=== PATIENT | female | born 1980 | race Two or more races ===

== ENCOUNTER 2022-03-11 06:39 | Inpatient (IN) ==
[2022-03-11] MEDS ORDERED: NS 100 ML IV 100 ML ONE (06:52)
[2022-03-11] MEDS ORDERED: ANCEF VIAL 1 GRAM ONE (06:52)
[2022-03-11] MEDS ORDERED: ZOFRAN INJ 4 MG VIAL ONE (06:52)
[2022-03-11] MEDS ORDERED: LR 1,000 ML IV 1,000 ML IV ONE (06:52)
[2022-03-11] MEDS ORDERED: PEPCID 20 MG VIAL ONE (06:53)
[2022-03-11] MEDS ORDERED: D5 1/2 NS 1,000 mL + PITOCIN 20 UNITS/L IV 20 UNITS/1,000 ML BAG IV ONE (06:53)
[2022-03-11] MEDS ORDERED: XYLOCAINE 2 % (PLAIN) ONE (07:03)
[2022-03-11] MEDS ORDERED: MARCAINE SPINAL ONE (07:03)
[2022-03-11] MEDS ORDERED: DILAUDID INJ ONE (07:04)
[2022-03-11] MEDS ORDERED: D5 1/2 NS 1,000 ML 1,000 ML IV SCH (07:09)
[2022-03-11] MEDS ORDERED: ANCEF VIAL 1 GRAM IVP ONE (07:09)
[2022-03-11] MEDS ORDERED: PITOCIN ONE (07:19)
[2022-03-11] MEDS ORDERED: ProvayBLUE 0.5% ONE (08:34)
[2022-03-11] MEDS ORDERED: PHENERGAN INJ 25 MG IM PRN (09:28)
[2022-03-11] MEDS ORDERED: ZOFRAN INJ 4 MG VIAL IVP PRN ×2 (09:28→09:56)
[2022-03-11] MEDS ORDERED: BARHEMSYS INJ IVP PRN (09:28)
[2022-03-11] MEDS ORDERED: BENADRYL INJ 50 MG VIAL IVP PRN ×2 (09:28→09:56)
[2022-03-11] MEDS ORDERED: REGLAN INJ 10 MG VIAL IVP PRN (09:28)
[2022-03-11] MEDS ORDERED: DILAUDID INJ IVP PRN (09:28)
[2022-03-11] MEDS ORDERED: ADACEL or BOOSTRIX TDaP VACCINE IM ONE (09:56)
[2022-03-11] MEDS ORDERED: PERCOCET TAB 5/325 MG PO PRN (09:56)
[2022-03-11] MEDS ORDERED: NARCAN INJ IVP PRN (09:56)
[2022-03-11] MEDS ORDERED: MYLICON TAB 80 MG CHEW PO PRN (09:56)
[2022-03-11] MEDS ORDERED: D5 1/2 NS 1,000 ML 1,000 ML with PITOCIN 20 UNITS IV SCH ×2 (10:00)
[2022-03-11] MEDS: TORADOL 30 MG VIAL IVP PRN (13:12)
[2022-03-12] MEDS: TORADOL 30 MG VIAL IVP PRN (00:25)
[2022-03-12 04:57] LABS: HEMATOCRIT 31.5 % (36.0-47.0); HEMOGLOBIN 11.1 g/dL (12.0-16.0)
[2022-03-12] MEDS ORDERED: MOTRIN TAB 800 MG PO PRN (06:18)
[2022-03-12] MEDS: PRENATAL PLUS PO SCH (08:56)
[2022-03-12] MEDS: MILK OF MAGNESIA PO SCH (08:56)
[2022-03-12] MEDS: COLACE CAP 100 MG PO SCH ×2 (08:56→21:44)
[2022-03-12] MEDS: PERCOCET TAB 5/325 MG PO PRN (11:35)
[2022-03-12] MEDS: BACTROBAN TOPICAL OINT TOP SCH ×2 (13:50→22:05)
[2022-03-13] MEDS: BACTROBAN TOPICAL OINT TOP SCH (05:30)
[2022-03-13] MEDS: PRENATAL PLUS PO SCH (10:00)
[2022-03-13] MEDS: MILK OF MAGNESIA PO SCH (10:00)
[2022-03-13] MEDS: COLACE CAP 100 MG PO SCH (10:00)
[2022-03-13] MEDS: PERCOCET TAB 5/325 MG PO PRN (10:02)
[2022-03-13 11:47] VITALS: BP 110/63
== END 2022-03-13 11:25 | disposition home or self-care (01) | DRG 785 ==
LOC: LD 06:39 → MED/SURG 09:56
PROVIDERS: ADMIT Specialist; ATTEND Specialist
DX: Z01.812 Encounter for preprocedural laboratory examination; Z37.0 Single live birth; Z01.818 Encounter for other preprocedural examination; Z30.2 Encounter for sterilization; Z20.822 Contact with and (suspected) exposure to COVID-19; N85.8 Other specified noninflammatory disorders of uterus; O34.211 Maternal care for low transverse scar from previous cesarean delivery

== ENCOUNTER 2023-06-17 01:29 | Inpatient (IN) ==
--- NOTE | 2023-06-17 01:50 | ED.ABDFE ---
HPI Time Seen Time Seen by Provider: 06/17/23 01:48 Complaint Doctors Chief Complaint Comments: Patient presents with abdll pain that is constant.Patient went to a primary care doctor on 06/15/23 for evaluation and was given medications that she states are not working. Patient first presented to [facility] with abdl pain on 05/21/2023. She had an abdl/pelvis CT that revealed descending colon pericolic stranding the differntial included colitis and colonic neoplasm.Two weeks ago patient went to [facility] in [place] with abdominal pain and was informed that she has colon cancer with "spots on her liver". Patient has not been able to get an appointment with an oncologist. She presents today because of te persistent pain.Patient denies:fever,nausea,vomiting,hematemesis,hematochezia,weakness. PMH PMH Past Surgical History: Yes Surgical History: Family History Family Medical History: Diabetes Mellitus, Heart Failure and Hypertension Social History Do you use any recreational Drugs:: No ROS Review of Systems Constitutional: No Symptoms Reported Eyes: No Symptoms Reported ENTM: No Symptoms Reported Respiratoy: No Symptoms Reported Cardiovascular: No Symptoms Reported Gastrointestinal/Abdominal: Abdominal Pain (generalized,intractable.) Genitourinary: No Symptoms Reported Neurological: No Symptoms Reported Musculoskeletal: No Symptoms Reported Integumentary: No Symptoms Reported Hematologic/Lymphatic: No Symptoms Reported Endocrine: No Symptoms Reported Psychiatric: No Symptoms Reported All Other Systems: Reviewed and Negative PE Vital Signs Vitals: Vital Signs Temperature 98.3 F Pulse Rate [Left Brachial] 80 Pulse Rate [Left Brachial] 86 Pulse Rate [Left Brachial] 92 Pulse Rate [Left Brachial] 85 Pulse Rate [Left Brachial] 80 Pulse Rate [Left Brachial] 91 Pulse Rate [Left Brachial] 91 Pulse Rate [Left Brachial] 94 Pulse Rate [Left Brachial] 97 Pulse Rate 100 Respiratory Rate 20 Respiratory Rate 20 Respiratory Rate 20 Respiratory Rate 20 Respiratory Rate 20 Respiratory Rate 20 Respiratory Rate 20 Respiratory Rate 20 Respiratory Rate 20 Respiratory Rate 20 Blood Pressure [Right Arm] 125/62 Blood Pressure [Right Arm] 102/58 Blood Pressure [Right Arm] 100/49 Blood Pressure [Right Arm] 106/55 Blood Pressure [Left Arm] 112/64 Blood Pressure [Left Arm] 106/56 Blood Pressure [Left Arm] 104/70 Blood Pressure [Left Arm] 106/55 Blood Pressure [Left Arm] 109/58 Blood Pressure 109/59 O2 Sat by Pulse Oximetry 97 O2 Sat by Pulse Oximetry 100 O2 Sat by Pulse Oximetry 98 O2 Sat by Pulse Oximetry 97 O2 Sat by Pulse Oximetry 96 O2 Sat by Pulse Oximetry 97 O2 Sat by Pulse Oximetry 98 O2 Sat by Pulse Oximetry 98 O2 Sat by Pulse Oximetry 97 General Limitations: No Limitations and Language Barrier General Appearance: Alert and In No Apparent Distress Head Head Exam: Normal Inspection Eyes Eye exam: Normal Appearance ENT ENT Exam: Normal Exam Neck Neck Exam: Normal Inspection Chest Chest Inspection: Normal Inspection Respiratory Respiratory Exam: Normal Lung Sounds Bilat Respiratory Exam: Bilateral: Clear to Auscultation Cardiovascular Cardiovascular Exam: Regular Rate and Normal Rhythm Abdominal Exam Abdominal Exam: Tenderness (RUQ/RLQ and LUQ) and Hypoactive Bowel Sounds Abdominal Tenderness: RUQ, RLQ and LUQ Rectal Rectal Exam: Deferred Back Back Exam: Normal Inspection Extremeties Extremities Exam: Normal Inspection Neurologic Neurological Exam: Alert and Oriented X3 Psychiatric Psychiatric Exam: Normal Affect and Normal Mood Skin Skin Exam: Warm, Dry and Intact MDM Differential Diagnosis Differential Diagnosis- Considerations may include:: Bowel Obstruction, Inflammatory BD, Ischemic Bowel and Other (comments) (Bowel perforation,malignancy) COURSE Treatment Treatment: Patient has a BP 109/59.IV access was initiated and patient patient recieved toradol 30mg iv/pepcid 20mg iv/dicyclomine 10mg IM/ NS 2L iv bolus. Patient's BP did mimprove. The abd/pelvis CT with iv contrast revealed probabale colonic adenocarcinoma pd descending colon with metastatic lesions (3) in the liver. Patient's family member states that her pain began iin her LUq and LLQ and has chnaged to her RUQ and RLQ. Patient's labs were reviewed and her wbc is wnl,h/h is 8,lactic acid is 0.6,crp 100. Discussed case with Dr Pepe and he has accepted patient to his service.Patient has been stable in the ED. [facility]OR Labs Reviewed Laboratory Results Reviewed?: Yes 06/17/23 02:08 06/17/23 02:08 Laboratory: WBC 10.0 X10^3/uL (3.6-10.0) 06/17/23 02:08 RBC 3.24 X10^6/uL (3.5-5.4) L 06/17/23 02:08 Hgb 8.0 g/dL (12.0-16.0) L 06/17/23 02:08 Hct 24.4 % (36.0-47.0) L 06/17/23 02:08 MCV 75.4 fL (80.0-100.0) L 06/17/23 02:08 MCH 24.6 pg (27.0-34.0) L 06/17/23 02:08 MCHC 32.7 g/dL (33.0-35.0) L 06/17/23 02:08 RDW 17.2 % (11.6-16.5) H 06/17/23 02:08 Plt Count 511 X10^3/uL (150.0-450.0) H 06/17/23 02:08 MPV 7.1 fL (7.4-11.0) L 06/17/23 02:08 Neut % (Auto) 74.4 % (42.0-75.0) 06/17/23 02:08 Lymph % (Auto) 15.1 % (21.0-51.0) L 06/17/23 02:08 [place] % (Auto) 9.4 % (0.0-13.0) 06/17/23 02:08 Eos % (Auto) 0.7 % (0.9-2.9) L 06/17/23 02:08 Baso % (Auto) 0.4 % (0.2-1.0) 06/17/23 02:08 Neut # (Auto) 7.5 x10^3/uL (2.2-4.8) H 06/17/23 02:08 Lymph # (Auto) 1.5 X10^3/uL (1.3-2.9) 06/17/23 02:08 [place] # (Auto) 0.9 x10^3/uL (0.3-0.8) H 06/17/23 02:08 Eos # (Auto) 0.1 x10^3/uL (0.0-0.2) 06/17/23 02:08 Baso # (Auto) 0.0 X10^3/uL (0.0-0.1) 06/17/23 02:08 Absolute Nucleated RBC 0.1 /100WBC 06/17/23 02:08 Sodium 126 mmol/L (136-145) L 06/17/23 02:08 Corrected Sodium TNP 06/17/23 02:08 Potassium 3.7 mmol/L (3.5-5.1) 06/17/23 02:08 Chloride 95 mmol/L (98-107) L 06/17/23 02:08 Carbon Dioxide 25.3 mmol/L (21-32) 06/17/23 02:08 BUN 9 mg/dL (7-18) 06/17/23 02:08 Creatinine 0.54 mg/dL (0.55-1.02) L 06/17/23 02:08 Est GFR (MDRD) Af Amer > 60 (>60) 06/17/23 02:08 Est GFR (MDRD) Non-Af > 60 (>60) 06/17/23 02:08 Glucose 83 mg/dL (65-99) 06/17/23 02:08 Lactic Acid 0.6 mmol/L (0.4-2.0) 06/17/23 02:08 Calcium 8.2 mg/dL (8.5-10.1) L 06/17/23 02:08 Corrected Calcium 9.7 mg/dL (8.5-10.1) 06/17/23 02:08 Total Bilirubin 0.50 mg/dL (0.2-1.0) 06/17/23 02:08 AST 37 Units/L (15-37) 06/17/23 02:08 ALT 21 Units/L (12-78) 06/17/23 02:08 Alkaline Phosphatase 298 Units/L (46-116) H 06/17/23 02:08 C-Reactive Protein 100.20 mg/L (0-3.0) H 06/17/23 02:08 Total Protein 7.6 g/dL (6.4-8.2) 06/17/23 02:08 Albumin 2.1 g/dL (3.4-5.0) L 06/17/23 02:08 Globulin 5.5 g/dL (2.5-4.5) H 06/17/23 02:08 Albumin/Globulin Ratio 0.4 Ratio (1.1-2.1) L 06/17/23 02:08 Amylase 43 Units/L (25-115) 06/17/23 02:08 Lipase 13 Units/L (16-77) L 06/17/23 02:08 Specimen Type Clean catch urine 06/17/23 05:05 Urine Color Yellow (YELLOW) 06/17/23 05:05 Urine Appearance Clear (CLEAR) 06/17/23 05:05 Urine pH 7.0 (5.0 - 8.0) 06/17/23 05:05 Ur Specific [place] 1.010 (1.000-1.030) 06/17/23 05:05 Urine Protein 2+ (NEGATIVE) 06/17/23 05:05 Urine Glucose (UA) Negative (NEGATIVE) 06/17/23 05:05 Urine Ketones Negative (NEGATIVE) 06/17/23 05:05 Urine Blood Negative (NEGATIVE) 06/17/23 05:05 Urine Nitrite Negative (NEGATIVE) 06/17/23 05:05 Urine Bilirubin Negative (NEGATIVE) 06/17/23 05:05 Urine Urobilinogen Normal (NORMAL) 06/17/23 05:05 Ur Leukocyte Esterase 1+ (NEGATIVE) 06/17/23 05:05 Urine RBC None seen /HPF (0-3) 06/17/23 05:05 Urine WBC 0-2 /HPF (0-5) 06/17/23 05:05 Ur Squamous Epith Cells Moderate /HPF (NEGATIVE) 06/17/23 05:05 Urine Bacteria Trace /HPF (NEGATIVE) 06/17/23 05:05 Urine Mucus Rare /HPF (NEGATIVE) 06/17/23 05:05 Ur Culture Indicated? No/not indicated 06/17/23 05:05 XRAY XRAY Interpreted by: Radiologist X-ray Results: EXAM: CT ABDOMEN AND PELVIS WITH CONTRAST HISTORY: Right-sided abdominal pain COMPARISON: May 21, 2023 TECHNIQUE: Axial images were acquired of the abdomen and pelvis with IV contrast. Sagittal and coronal reformatted images were provided. All images were reviewed in a variety of windows and levels. RADIATION REDUCTION TECHNIQUE: Automated exposure control, adjustment of the mA and/or kV according to patient size, or iterative reconstruction techniques were used. FINDINGS: The visualized lower lung zones are clear. There is a 3 mm nodule in the right lower lobe. Dependent atelectatic changes are noted. Heart size is normal. No pericardial effusion is seen. There is a large ill-defined mass located in the right hepatic lobe extending to the subcapsular surface which measures 10 x 8 cm. There are 2 additional liver lesion seen measuring 27 mm in diameter in the anterior segment of the right hepatic lobe and 28 mm in diameter located in the posterior segment of the right hepatic lobe. Multiple gallstones are identified. The spleen, pancreas, adrenal glands, and kidneys are unremarkable. Progressive fusiform enlargement is seen involving the distal portion of the descending colon which measures 9 cm in length which has a central necrotic region with an abrupt shelf cutoff between normal bowel. This has progressively worsened when compared to the prior examinations. There is no evidence of obstructive uropathy. The patient is status post hysterectomy. The remaining visualized portions of the colon and appendix is unremarkable. Urinary bladder is unremarkable. There are lymph nodes that are visualized in the peritoneum and in the retroperitoneal region but they do not meet CT criteria for lymphadenopathy. There is no evidence of an abdominal aortic aneurysm or dissection. The visualized bones demonstrate degenerative changes. There are no concerning lytic or blastic lesions identified. IMPRESSION: FINDINGS ARE HIGHLY WORRISOME FOR COLONIC ADENOCARCINOMA OF THE DESCENDING COLON WITH IMAGING FEATURES THAT ARE HIGHLY WORRISOME FOR METASTATIC DISEASE TO THE LIVER. COMMUNICATIONS: These findings were discussed with Dr. Patel of the emergency Department at 4:20 A.M. EASTERN STANDARD TIME on 06/17/2023. THIS IS AN ELECTRONICALLY VERIFIED FINAL REPORT 06/17/2023 4:33 AM - Electronically signed by Toby Landaverde MD Opioid Opioid Risk Tool Age (Donnie box if 16-45): Yes History of Preadolescent Sexual Abuse: No Total: 1 Total Score Risk Category: Low Risk Copyright: [facility] predicting aberrant behaviors Discharge Plan Diagnosis Discharge Problem: Intractable abdominal pain, Colon cancer metastasized to liver Discharge Plan Patient Disposition: 09 ADMITTED INPATIENT Condition: Stable Prescriptions: No Action [facility] Concerns: Post Hospitalization: new medications and changes needed to prevent readmission or further decline. Pt educated and given instructions on all concerns. Plan of Treatment: Continue with present treatment and follow up plan. Pt is to keep follow up appointment as instructed and take medications as ordered. Orders to Discharge Patient Discharge Orders: Transfer (Routine); Ordered 06/17/23 Ordered By: Liliana Capps Follow ups/Referrals Follow ups/Referrals: NFD,None [Primary Care Provider] - 3 days Instructions Stand Alone Forms: Post Hospital Follow Up Care
[2023-06-17] MEDS ORDERED: NS 1,000 ML IV 1,000 ML IV ONE (01:56)
[2023-06-17] MEDS ORDERED: PEPCID 20 MG VIAL IVP ONE (01:56)
[2023-06-17] MEDS ORDERED: ZOFRAN INJ 4 MG VIAL IVP ONE (01:56)
[2023-06-17] MEDS ORDERED: TORADOL 30 MG VIAL IVP ONE (01:56)
[2023-06-17] MEDS ORDERED: NS 1,000 ML IV 1,000 ML ONE ×2 (02:00→03:50)
[2023-06-17] MEDS ORDERED: TORADOL 30 MG VIAL ONE (02:14)
[2023-06-17] MEDS ORDERED: ZOFRAN INJ 4 MG VIAL ONE (02:15)
[2023-06-17] MEDS ORDERED: PEPCID 20 MG VIAL ONE (02:15)
[2023-06-17 02:34] LABS: BASOPHILS % (AUTO) 0.4 % (0.2-1.0); EOSINOPHILS # (AUTO) 0.1 x10^3/uL (0.0-0.2); EOSINOPHILS % (AUTO) 0.7 % (0.9-2.9); HEMATOCRIT 24.4 % (36.0-47.0); LYMPHOCYTES # (AUTO) 1.5 X10^3/uL (1.3-2.9); LYMPHOCYTES % (AUTO) 15.1 % (21.0-51.0); MEAN CORPUSCULAR HEMOGLOBIN 24.6 pg (27.0-34.0); MEAN CORPUSCULAR HGB CONC 32.7 g/dL (33.0-35.0); MEAN CORPUSCULAR VOLUME 75.4 fL (80.0-100.0); MEAN PLATELET VOLUME 7.1 fL (7.4-11.0); MONOCYTES # (AUTO) 0.9 x10^3/uL (0.3-0.8); MONOCYTES % (AUTO) 9.4 % (0.0-13.0); NEUTROPHILS # (AUTO) 7.5 x10^3/uL (2.2-4.8); NEUTROPHILS % (AUTO) 74.4 % (42.0-75.0); PLATELET COUNT 511 X10^3/uL (150.0-450.0); RED BLOOD COUNT 3.24 X10^6/uL (3.5-5.4); RED CELL DISTRIBUTION WIDTH 17.2 % (11.6-16.5)
[2023-06-17 02:36] LABS: ALANINE AMINOTRANSFERASE 21 Units/L (12-78); ALBUMIN 2.1 g/dL (3.4-5.0); ALKALINE PHOSPHATASE 298 Units/L (46-116); AMYLASE 43 Units/L (25-115); ASPARTATE AMINO TRANSFERASE 37 Units/L (15-37); BLOOD UREA NITROGEN 9 mg/dL (7-18); CALCIUM 8.2 mg/dL (8.5-10.1); CARBON DIOXIDE 25.3 mmol/L (21-32); CHLORIDE 95 mmol/L (98-107); COR CA(FOR HYPOALB) 9.7 mg/dL (8.5-10.1); CREATININE 0.54 mg/dL (0.55-1.02); GLUCOSE 83 mg/dL (65-99); LIPASE 13 Units/L (16-77); POTASSIUM 3.7 mmol/L (3.5-5.1); SODIUM 126 mmol/L (136-145); TOTAL PROTEIN 7.6 g/dL (6.4-8.2); eGFR NON BLACK RACES > 60 (>60)
[2023-06-17] MEDS ORDERED: NS 100 ML IV 100 ML ONE (02:44)
[2023-06-17] MEDS ORDERED: OMNIPAQUE 350 mg/mL 100 mL BTL 100 ML ONE (02:44)
[2023-06-17] MEDS: NS 1,000 ML IV 1,000 ML IV ONE (03:53)
--- NOTE | 2023-06-17 04:37 | CT ---
EXAM:CT ABDOMEN AND PELVIS WITH CONTRASTHISTORY:Right-sided abdominal painCOMPARISON:May 21, 2023TECHNIQUE:Axial images were acquired of the abdomen and pelvis with IV contrast. Sagittal and coronal reformatted images were provided. All images were reviewed in a variety of windows and levels.RADIATION REDUCTION TECHNIQUE: Automated exposure control, adjustment of the mA and/or kV according to patient size, or iterative reconstruction techniques were used.FINDINGS:The visualized lower lung zones are clear. There is a 3 mm nodule in the right lower lobe. Dependent atelectatic changes are noted. Heart size is normal. No pericardial effusion is seen.There is a large ill-defined mass located in the right hepatic lobe extending to the subcapsular surface which measures 10 x 8 cm. There are 2 additional liver lesion seen measuring 27 mm in diameter in the anterior segment of the right hepatic lobe and 28 mm in diameter located in the posterior segment of the right hepatic lobe.Multiple gallstones are identified. The spleen, pancreas, adrenal glands, and kidneys are unremarkable. Progressive fusiform enlargement is seen involving the distal portion of the descending colon which measures 9 cm in length which has a central necrotic region with an abrupt shelf cutoff between normal bowel. This has progressively worsened when compared to the prior examinations.There is no evidence of obstructive uropathy. The patient is status post hysterectomy. The remaining visualized portions of the colon and appendix is unremarkable. Urinary bladder is unremarkable. There are lymph nodes that are visualized in the peritoneum and in the retroperitoneal region but they do not meet CT criteria for lymphadenopathy.There is no evidence of an abdominal aortic aneurysm or dissection. The visualized bones demonstrate degenerative changes. There are no concerning lytic or blastic lesions identified.IMPRESSION:FINDINGS ARE HIGHLY WORRISOME FOR COLONIC ADENOCARCINOMA OF THE DESCENDING COLON WITH IMAGING FEATURES THAT ARE HIGHLY WORRISOME FOR METASTATIC DISEASE TO THE LIVER.COMMUNICATIONS: These findings were discussed with Dr. Patel of the emergency Department at 4:20 A.M. EASTERN STANDARD TIME on 06/17/2023.THIS IS AN ELECTRONICALLY VERIFIED FINAL REPORT06/17/2023 4:33 AM - Electronically signed by Toby Landaverde MD
[2023-06-17 05:10] LABS: BILIRUBIN,URINE NEGATIVE (NEGATIVE); BLOOD/HEMOGLOBIN,URINE NEGATIVE (NEGATIVE); GLUCOSE, URINE NEGATIVE (NEGATIVE); KETONES,URINE NEGATIVE (NEGATIVE); LEUKOCYTE ESTERASE ,URINE 1+ (NEGATIVE); NITRITES,URINE NEGATIVE (NEGATIVE); PROTEIN,URINE 2+ (NEGATIVE); UROBILINOGEN,URINE NORMAL (NORMAL)
[2023-06-17 05:20] LABS: APPEARANCE,URINE CLEAR (CLEAR); COLOR,URINE YELLOW (YELLOW)
[2023-06-17 05:29] LABS: BACTERIA,URINE TRACE /HPF (NEGATIVE); RBC,URINE NONE SEEN /HPF (0-3); SQUAMOUS EPITHELIAL CELL,UR MODERATE /HPF (NEGATIVE)
[2023-06-17] MEDS ORDERED: BENTYL I.M. INJ 10 MG IM ONE ×2 (05:41→05:42)
[2023-06-17] MEDS ORDERED: LR 1,000 ML IV 1,000 ML IV ONE (06:48)
[2023-06-17] MEDS: LR 1,000 ML IV 1,000 ML IV SCH ×3 (06:50→19:04)
[2023-06-17] MEDS: ZOFRAN INJ 4 MG VIAL IVP PRN ×3 (08:20→20:37)
[2023-06-17] MEDS ORDERED: GOLYTELY or GAVILYTE or Equivalent PO SCH (09:00)
[2023-06-17 09:27] VITALS: BMI 37.8
[2023-06-17] MEDS: DILAUDID INJ IVP PRN ×4 (09:39→20:36)
[2023-06-17] MEDS ORDERED: COMPAZINE INJ IVP SCH (16:45)
[2023-06-17] MEDS: COMPAZINE INJ IVP PRN (17:02)
[2023-06-18] MEDS: DILAUDID INJ IVP PRN ×7 (00:18→23:26)
[2023-06-18] MEDS: COMPAZINE INJ IVP PRN ×4 (03:14→23:17)
[2023-06-18] MEDS: LR 1,000 ML IV 1,000 ML IV SCH ×2 (04:00→09:44)
[2023-06-18 05:40] LABS: BASOPHILS # (AUTO) 0.1 X10^3/uL (0.0-0.1); EOSINOPHILS # (AUTO) 0.1 x10^3/uL (0.0-0.2); EOSINOPHILS % (AUTO) 0.7 % (0.9-2.9); LYMPHOCYTES # (AUTO) 1.1 X10^3/uL (1.3-2.9); MEAN CORPUSCULAR HEMOGLOBIN 24.6 pg (27.0-34.0); MEAN CORPUSCULAR HGB CONC 32.7 g/dL (33.0-35.0); MEAN PLATELET VOLUME 7.1 fL (7.4-11.0)
[2023-06-18 05:46] LABS: BASOPHILS % (AUTO) 1.1 % (0.2-1.0); LYMPHOCYTES % (AUTO) 12.3 % (21.0-51.0); MEAN CORPUSCULAR VOLUME 75.1 fL (80.0-100.0); MONOCYTES # (AUTO) 1.1 x10^3/uL (0.3-0.8); MONOCYTES % (AUTO) 11.5 % (0.0-13.0); NEUTROPHILS # (AUTO) 6.9 x10^3/uL (2.2-4.8); NEUTROPHILS % (AUTO) 74.4 % (42.0-75.0); PLATELET COUNT 469 X10^3/uL (150.0-450.0); RED BLOOD COUNT 2.79 X10^6/uL (3.5-5.4); RED CELL DISTRIBUTION WIDTH 17.3 % (11.6-16.5); WHITE BLOOD COUNT 9.3 X10^3/uL (3.6-10.0)
[2023-06-18 05:58] LABS: ALANINE AMINOTRANSFERASE 16 Units/L (12-78); ALBUMIN 1.8 g/dL (3.4-5.0); ALKALINE PHOSPHATASE 221 Units/L (46-116); ASPARTATE AMINO TRANSFERASE 35 Units/L (15-37); BLOOD UREA NITROGEN 5 mg/dL (7-18); CHLORIDE 98 mmol/L (98-107); COR CA(FOR HYPOALB) 9.8 mg/dL (8.5-10.1); CREATININE 0.44 mg/dL (0.55-1.02); GLUCOSE 75 mg/dL (65-99); POTASSIUM 3.4 mmol/L (3.5-5.1); SODIUM 130 mmol/L (136-145); TOTAL PROTEIN 6.8 g/dL (6.4-8.2); eGFR NON BLACK RACES > 60 (>60)
[2023-06-18 06:08] LABS: HEMOGLOBIN 6.9 g/dL (12.0-16.0)
[2023-06-18] MEDS: ZOFRAN INJ 4 MG VIAL IVP PRN ×3 (07:40→19:43)
[2023-06-18] MEDS ORDERED: NS 1,000 ML IV 1,000 ML ONE (08:26)
[2023-06-18] MEDS ORDERED: DIPRIVAN VIAL 20 ML ONE ×2 (08:32→08:53)
[2023-06-18] MEDS ORDERED: NS 500 ML IV 500 ML IV ONE (10:39)
[2023-06-18] MEDS: LEVAQUIN PREMIX IV 500 MG 500 MG/100 ML BAG IV SCH (10:45)
[2023-06-18] MEDS: NS 500 ML IV 500 ML IV ONE (10:45)
[2023-06-18] MEDS: D5 1/2 NS 1,000 ML 1,000 ML IV SCH ×2 (10:45→21:41)
[2023-06-18] MEDS: TORADOL TAB PO PRN ×2 (11:00→18:56)
[2023-06-18 19:13] LABS: HEMATOCRIT 25.9 % (36.0-47.0); HEMOGLOBIN 8.3 g/dL (12.0-16.0)
[2023-06-19] MEDS: D5 1/2 NS 1,000 ML 1,000 ML IV SCH (02:18)
[2023-06-19] MEDS: ZOFRAN INJ 4 MG VIAL IVP PRN ×3 (03:30→20:30)
[2023-06-19] MEDS: DILAUDID INJ IVP PRN ×5 (03:31→20:30)
[2023-06-19 05:31] LABS: BASOPHILS # (AUTO) 0.1 X10^3/uL (0.0-0.1); BASOPHILS % (AUTO) 0.9 % (0.2-1.0); EOSINOPHILS % (AUTO) 0.2 % (0.9-2.9); HEMATOCRIT 23.8 % (36.0-47.0); HEMOGLOBIN 7.9 g/dL (12.0-16.0); LYMPHOCYTES # (AUTO) 0.6 X10^3/uL (1.3-2.9); LYMPHOCYTES % (AUTO) 6.4 % (21.0-51.0); MEAN CORPUSCULAR HEMOGLOBIN 25.2 pg (27.0-34.0); MEAN CORPUSCULAR VOLUME 76.4 fL (80.0-100.0); MEAN PLATELET VOLUME 7.3 fL (7.4-11.0); MONOCYTES # (AUTO) 1.1 x10^3/uL (0.3-0.8); MONOCYTES % (AUTO) 11.1 % (0.0-13.0); NEUTROPHILS # (AUTO) 8.2 x10^3/uL (2.2-4.8); NEUTROPHILS % (AUTO) 81.4 % (42.0-75.0); PLATELET COUNT 420 X10^3/uL (150.0-450.0); RED BLOOD COUNT 3.12 X10^6/uL (3.5-5.4); RED CELL DISTRIBUTION WIDTH 17.8 % (11.6-16.5); WHITE BLOOD COUNT 10.1 X10^3/uL (3.6-10.0)
[2023-06-19 05:52] LABS: ALANINE AMINOTRANSFERASE 15 Units/L (12-78); ALBUMIN 1.7 g/dL (3.4-5.0); ALKALINE PHOSPHATASE 191 Units/L (46-116); ASPARTATE AMINO TRANSFERASE 41 Units/L (15-37); BLOOD UREA NITROGEN 5 mg/dL (7-18); CALCIUM 7.8 mg/dL (8.5-10.1); CHLORIDE 96 mmol/L (98-107); COR CA(FOR HYPOALB) 9.6 mg/dL (8.5-10.1); CREATININE 0.46 mg/dL (0.55-1.02); GLUCOSE 97 mg/dL (65-99); MAGNESIUM 1.6 mg/dL (2.0-2.9); POTASSIUM 3.1 mmol/L (3.5-5.1); SODIUM 128 mmol/L (136-145); TOTAL PROTEIN 6.6 g/dL (6.4-8.2); eGFR NON BLACK RACES > 60 (>60)
[2023-06-19] MEDS ORDERED: CONSULT PHARMACY - POTASSIUM & MAGNESIUM XX SCH (07:00)
[2023-06-19] MEDS ORDERED: MAGNESIUM SULFATE 1 GRAM/100 mL PREMIX 1 G/100 ML BAG IV SCH (09:00)
[2023-06-19] MEDS ORDERED: K-RIDER 10 MEQ/100 ML WATER 10 MEQ/100 ML BAG IV SCH (09:00)
[2023-06-19] MEDS: COMPAZINE INJ IVP PRN ×3 (09:00→23:01)
--- NOTE | 2023-06-19 09:09 | DR.PROGNOT ---
HOSPITAL PROGRESS NOTE Progress Note for Day of: Progress Note Date: 06/19/23 Chief Complaint Chief Complaint: c/o RT side abdominal pain . passing flatus and small BM . Hgb 7.9... biliru2.2 .. K 3.1 .Album1.7 Past Medical Family Social History Allergies: Allergies No Known Drug Allergies Allergy (Verified 06/17/23 08:57) Vital Signs Vital Signs: Vital Signs Temperature 99.4 F Pulse Rate 103 Pulse Rate 86 Pulse Rate 101 Pulse Rate 108 Pulse Rate 103 Respiratory Rate 20 Respiratory Rate 19 Respiratory Rate 21 Respiratory Rate 22 Respiratory Rate 19 Respiratory Rate 22 Respiratory Rate 23 Blood Pressure 129/78 Blood Pressure 119/63 Blood Pressure 126/76 Blood Pressure 136/86 Blood Pressure 131/69 O2 Sat by Pulse Oximetry 96 O2 Sat by Pulse Oximetry 94 O2 Sat by Pulse Oximetry 95 O2 Sat by Pulse Oximetry 96 O2 Sat by Pulse Oximetry 95 Physical Exam Oriented: Normal Eyes: Normal Nose: Normal Respiratory: Normal Cardiovascular: Normal GI:Auscultation: Normal GI: Tenderness: Other (Rt side and Lt side tenderness , soft abdomen ..) Speech Pattern: Clear and Appropriate Laboratory and Diagnostics 06/19/23 04:03 06/19/23 04:03 Labs: Laboratory WBC 10.1 X10^3/uL (3.6-10.0) H 06/19/23 04:03 RBC 3.12 X10^6/uL (3.5-5.4) L 06/19/23 04:03 Hgb 7.9 g/dL (12.0-16.0) L 06/19/23 04:03 Hct 23.8 % (36.0-47.0) L 06/19/23 04:03 MCV 76.4 fL (80.0-100.0) L 06/19/23 04:03 MCH 25.2 pg (27.0-34.0) L 06/19/23 04:03 MCHC 33.0 g/dL (33.0-35.0) 06/19/23 04:03 RDW 17.8 % (11.6-16.5) H 06/19/23 04:03 Plt Count 420 X10^3/uL (150.0-450.0) 06/19/23 04:03 MPV 7.3 fL (7.4-11.0) L 06/19/23 04:03 Neut % (Auto) 81.4 % (42.0-75.0) H 06/19/23 04:03 Lymph % (Auto) 6.4 % (21.0-51.0) L 06/19/23 04:03 [place] % (Auto) 11.1 % (0.0-13.0) 06/19/23 04:03 Eos % (Auto) 0.2 % (0.9-2.9) L 06/19/23 04:03 Baso % (Auto) 0.9 % (0.2-1.0) 06/19/23 04:03 Neut # (Auto) 8.2 x10^3/uL (2.2-4.8) H 06/19/23 04:03 Lymph # (Auto) 0.6 X10^3/uL (1.3-2.9) L 06/19/23 04:03 [place] # (Auto) 1.1 x10^3/uL (0.3-0.8) H 06/19/23 04:03 Eos # (Auto) 0.0 x10^3/uL (0.0-0.2) 06/19/23 04:03 Baso # (Auto) 0.1 X10^3/uL (0.0-0.1) 06/19/23 04:03 Absolute Nucleated RBC 0.0 /100WBC 06/19/23 04:03 Sodium 128 mmol/L (136-145) L 06/19/23 04:03 Corrected Sodium TNP 06/19/23 04:03 Potassium 3.1 mmol/L (3.5-5.1) L 06/19/23 04:03 Chloride 96 mmol/L (98-107) L 06/19/23 04:03 Carbon Dioxide 25.0 mmol/L (21-32) 06/19/23 04:03 BUN 5 mg/dL (7-18) L 06/19/23 04:03 Creatinine 0.46 mg/dL (0.55-1.02) L 06/19/23 04:03 Est GFR (MDRD) Af Amer > 60 (>60) 06/19/23 04:03 Est GFR (MDRD) Non-Af > 60 (>60) 06/19/23 04:03 Glucose 97 mg/dL (65-99) 06/19/23 04:03 Lactic Acid 0.6 mmol/L (0.4-2.0) 06/17/23 02:08 Calcium 7.8 mg/dL (8.5-10.1) L 06/19/23 04:03 Corrected Calcium 9.6 mg/dL (8.5-10.1) 06/19/23 04:03 Magnesium 1.6 mg/dL (2.0-2.9) L 06/19/23 04:03 Total Bilirubin 2.20 mg/dL (0.2-1.0) H 06/19/23 04:03 AST 41 Units/L (15-37) H 06/19/23 04:03 ALT 15 Units/L (12-78) 06/19/23 04:03 Alkaline Phosphatase 191 Units/L (46-116) H 06/19/23 04:03 C-Reactive Protein 100.20 mg/L (0-3.0) H 06/17/23 02:08 Total Protein 6.6 g/dL (6.4-8.2) 06/19/23 04:03 Albumin 1.7 g/dL (3.4-5.0) L 06/19/23 04:03 Globulin 4.9 g/dL (2.5-4.5) H 06/19/23 04:03 Albumin/Globulin Ratio 0.3 Ratio (1.1-2.1) L 06/19/23 04:03 Amylase 43 Units/L (25-115) 06/17/23 02:08 Lipase 13 Units/L (16-77) L 06/17/23 02:08 Specimen Type Clean catch urine 06/17/23 05:05 Urine Color Yellow (YELLOW) 06/17/23 05:05 Urine Appearance Clear (CLEAR) 06/17/23 05:05 Urine pH 7.0 (5.0 - 8.0) 06/17/23 05:05 Ur Specific [place] 1.010 (1.000-1.030) 06/17/23 05:05 Urine Protein 2+ (NEGATIVE) 06/17/23 05:05 Urine Glucose (UA) Negative (NEGATIVE) 06/17/23 05:05 Urine Ketones Negative (NEGATIVE) 06/17/23 05:05 Urine Blood Negative (NEGATIVE) 06/17/23 05:05 Urine Nitrite Negative (NEGATIVE) 06/17/23 05:05 Urine Bilirubin Negative (NEGATIVE) 06/17/23 05:05 Urine Urobilinogen Normal (NORMAL) 06/17/23 05:05 Ur Leukocyte Esterase 1+ (NEGATIVE) 06/17/23 05:05 Urine RBC None seen /HPF (0-3) 06/17/23 05:05 Urine WBC 0-2 /HPF (0-5) 06/17/23 05:05 Ur Squamous Epith Cells Moderate /HPF (NEGATIVE) 06/17/23 05:05 Urine Bacteria Trace /HPF (NEGATIVE) 06/17/23 05:05 Urine Mucus Rare /HPF (NEGATIVE) 06/17/23 05:05 Ur Culture Indicated? No/not indicated 06/17/23 05:05 Blood Type O POSITIVE 06/18/23 06:30 Antibody Screen Negative 06/18/23 06:30 Crossmatch See Detail 06/18/23 06:30 Assessment and Plan 1: Lt colon ca at 35 cm . for transfusion , surgery on wednesday .. 2: GI blood loss anemia 3: chlecystitis 4: hypokalemia Problem Patient Problems: Patient Problems Intractable abdominal pain (Acute) R10.9 Colon cancer metastasized to liver (Acute) C18.9, C78.7
[2023-06-19] MEDS: LEVAQUIN PREMIX IV 500 MG 500 MG/100 ML BAG IV SCH (09:50)
[2023-06-19] MEDS: NS + KCL 20 MEQ/L 1,000 ML with MAGNESIUM SULFATE 50% INJ VIAL 1 G IV SCH ×6 (09:50→23:03)
[2023-06-19] MEDS: VISTARIL PO PRN (09:50)
[2023-06-19] MEDS ORDERED: NS 500 ML IV 500 ML IV ONE (14:12)
[2023-06-19] MEDS: NS 500 ML IV 500 ML IV ONE (14:50)
[2023-06-19 18:15] LABS: HEMATOCRIT 28.5 % (36.0-47.0); HEMOGLOBIN 9.2 g/dL (12.0-16.0)
[2023-06-19] MEDS: TORADOL TAB PO PRN (23:08)
[2023-06-20] MEDS: NS + KCL 20 MEQ/L 1,000 ML with MAGNESIUM SULFATE 50% INJ VIAL 1 G IV SCH ×6 (00:14→21:29)
[2023-06-20] MEDS: DILAUDID INJ IVP PRN ×6 (00:14→21:45)
[2023-06-20] MEDS: ZOFRAN INJ 4 MG VIAL IVP PRN ×3 (04:12→21:44)
[2023-06-20 05:39] LABS: BASOPHILS # (AUTO) 0.1 X10^3/uL (0.0-0.1); BASOPHILS % (AUTO) 1.4 % (0.2-1.0); EOSINOPHILS # (AUTO) 0.1 x10^3/uL (0.0-0.2); EOSINOPHILS % (AUTO) 0.6 % (0.9-2.9); HEMATOCRIT 25.7 % (36.0-47.0); HEMOGLOBIN 8.6 g/dL (12.0-16.0); LYMPHOCYTES # (AUTO) 0.9 X10^3/uL (1.3-2.9); LYMPHOCYTES % (AUTO) 9.3 % (21.0-51.0); MEAN CORPUSCULAR HEMOGLOBIN 25.7 pg (27.0-34.0); MEAN CORPUSCULAR HGB CONC 33.6 g/dL (33.0-35.0); MEAN CORPUSCULAR VOLUME 76.6 fL (80.0-100.0); MEAN PLATELET VOLUME 7.2 fL (7.4-11.0); MONOCYTES % (AUTO) 10.6 % (0.0-13.0); NEUTROPHILS # (AUTO) 7.7 x10^3/uL (2.2-4.8); NEUTROPHILS % (AUTO) 78.1 % (42.0-75.0); PLATELET COUNT 409 X10^3/uL (150.0-450.0); RED BLOOD COUNT 3.36 X10^6/uL (3.5-5.4); RED CELL DISTRIBUTION WIDTH 17.8 % (11.6-16.5); WHITE BLOOD COUNT 9.8 X10^3/uL (3.6-10.0)
[2023-06-20 05:59] LABS: ALANINE AMINOTRANSFERASE 16 Units/L (12-78); ALBUMIN 1.7 g/dL (3.4-5.0); ALKALINE PHOSPHATASE 174 Units/L (46-116); ASPARTATE AMINO TRANSFERASE 39 Units/L (15-37); BLOOD UREA NITROGEN 3 mg/dL (7-18); CALCIUM 7.8 mg/dL (8.5-10.1); CARBON DIOXIDE 24.4 mmol/L (21-32); CHLORIDE 98 mmol/L (98-107); COR CA(FOR HYPOALB) 9.6 mg/dL (8.5-10.1); CREATININE 0.48 mg/dL (0.55-1.02); GLUCOSE 70 mg/dL (65-99); MAGNESIUM 2.1 mg/dL (2.0-2.9); POTASSIUM 3.5 mmol/L (3.5-5.1); SODIUM 130 mmol/L (136-145); TOTAL PROTEIN 6.5 g/dL (6.4-8.2); eGFR NON BLACK RACES > 60 (>60)
[2023-06-20] MEDS ORDERED: CONSULT PHARMACY - POTASSIUM & MAGNESIUM XX SCH (07:00)
[2023-06-20] MEDS: COMPAZINE INJ IVP PRN (09:00)
[2023-06-20] MEDS ORDERED: K-RIDER 10 MEQ/100 ML WATER 10 MEQ/100 ML BAG IV SCH (09:00)
[2023-06-20] MEDS: LEVAQUIN PREMIX IV 500 MG 500 MG/100 ML BAG IV SCH (09:07)
[2023-06-20] MEDS: VISTARIL PO PRN ×2 (13:11→23:18)
--- NOTE | 2023-06-20 13:28 | DR.PROGNOT ---
HOSPITAL PROGRESS NOTE Progress Note for Day of: Progress Note Date: 06/20/23 Chief Complaint Chief Complaint: c/o RT side abdominal pain . passing flatus and small BM . Hgb 8.6.. Bilirubin 2.5 Alk Ph 174 Past Medical Family Social History Past Med/Fam/Surg Hx: No changes since H&P Allergies: Allergies No Known Drug Allergies Allergy (Verified 06/17/23 08:57) Vital Signs Vital Signs: Vital Signs Pulse Rate 95 Pulse Rate 96 Pulse Rate 97 Pulse Rate 100 Pulse Rate 104 Pulse Rate 90 Pulse Rate 110 Pulse Rate 108 Pulse Rate 88 Pulse Rate 86 Pulse Rate 90 Pulse Rate 92 Respiratory Rate 20 Respiratory Rate 18 Respiratory Rate 23 Respiratory Rate 21 Respiratory Rate 25 Respiratory Rate 17 Respiratory Rate 21 Respiratory Rate 22 Respiratory Rate 21 Respiratory Rate 4 Respiratory Rate 17 Respiratory Rate 18 Blood Pressure 138/64 Blood Pressure 129/78 Blood Pressure 122/68 Blood Pressure 123/72 Blood Pressure 99/53 Blood Pressure 93/55 Blood Pressure 118/72 Blood Pressure 118/72 O2 Sat by Pulse Oximetry 99 O2 Sat by Pulse Oximetry 99 O2 Sat by Pulse Oximetry 99 O2 Sat by Pulse Oximetry 99 O2 Sat by Pulse Oximetry 96 O2 Sat by Pulse Oximetry 97 O2 Sat by Pulse Oximetry 99 O2 Sat by Pulse Oximetry 97 O2 Sat by Pulse Oximetry 95 O2 Sat by Pulse Oximetry 96 O2 Sat by Pulse Oximetry 96 Physical Exam Oriented: Normal Eyes: Normal Nose: Normal Respiratory: Normal Cardiovascular: Normal GI:Auscultation: Normal GI: Tenderness: Other (Rt side and Lt side tenderness , soft abdomen ..) Speech Pattern: Clear and Appropriate Laboratory and Diagnostics 06/20/23 04:04 06/20/23 04:04 Labs: 06/17/23 02:15 Blood Blood Culture - Preliminary 06/17/23 02:08 Blood Blood Culture - Preliminary Laboratory WBC 9.8 X10^3/uL (3.6-10.0) 06/20/23 04:04 RBC 3.36 X10^6/uL (3.5-5.4) L 06/20/23 04:04 Hgb 8.6 g/dL (12.0-16.0) L 06/20/23 04:04 Hct 25.7 % (36.0-47.0) L 06/20/23 04:04 MCV 76.6 fL (80.0-100.0) L 06/20/23 04:04 MCH 25.7 pg (27.0-34.0) L 06/20/23 04:04 MCHC 33.6 g/dL (33.0-35.0) 06/20/23 04:04 RDW 17.8 % (11.6-16.5) H 06/20/23 04:04 Plt Count 409 X10^3/uL (150.0-450.0) 06/20/23 04:04 MPV 7.2 fL (7.4-11.0) L 06/20/23 04:04 Neut % (Auto) 78.1 % (42.0-75.0) H 06/20/23 04:04 Lymph % (Auto) 9.3 % (21.0-51.0) L 06/20/23 04:04 [place] % (Auto) 10.6 % (0.0-13.0) 06/20/23 04:04 Eos % (Auto) 0.6 % (0.9-2.9) L 06/20/23 04:04 Baso % (Auto) 1.4 % (0.2-1.0) H 06/20/23 04:04 Neut # (Auto) 7.7 x10^3/uL (2.2-4.8) H 06/20/23 04:04 Lymph # (Auto) 0.9 X10^3/uL (1.3-2.9) L 06/20/23 04:04 [place] # (Auto) 1.0 x10^3/uL (0.3-0.8) H 06/20/23 04:04 Eos # (Auto) 0.1 x10^3/uL (0.0-0.2) 06/20/23 04:04 Baso # (Auto) 0.1 X10^3/uL (0.0-0.1) 06/20/23 04:04 Absolute Nucleated RBC 0.0 /100WBC 06/20/23 04:04 Sodium 130 mmol/L (136-145) L 06/20/23 04:04 Corrected Sodium TNP 06/20/23 04:04 Potassium 3.5 mmol/L (3.5-5.1) 06/20/23 04:04 Chloride 98 mmol/L (98-107) 06/20/23 04:04 Carbon Dioxide 24.4 mmol/L (21-32) 06/20/23 04:04 BUN 3 mg/dL (7-18) L 06/20/23 04:04 Creatinine 0.48 mg/dL (0.55-1.02) L 06/20/23 04:04 Est GFR (MDRD) Af Amer > 60 (>60) 06/20/23 04:04 Est GFR (MDRD) Non-Af > 60 (>60) 06/20/23 04:04 Glucose 70 mg/dL (65-99) 06/20/23 04:04 Lactic Acid 0.6 mmol/L (0.4-2.0) 06/17/23 02:08 Calcium 7.8 mg/dL (8.5-10.1) L 06/20/23 04:04 Corrected Calcium 9.6 mg/dL (8.5-10.1) 06/20/23 04:04 Magnesium 2.1 mg/dL (2.0-2.9) 06/20/23 04:04 Total Bilirubin 2.50 mg/dL (0.2-1.0) H 06/20/23 04:04 AST 39 Units/L (15-37) H 06/20/23 04:04 ALT 16 Units/L (12-78) 06/20/23 04:04 Alkaline Phosphatase 174 Units/L (46-116) H 06/20/23 04:04 C-Reactive Protein 100.20 mg/L (0-3.0) H 06/17/23 02:08 Total Protein 6.5 g/dL (6.4-8.2) 06/20/23 04:04 Albumin 1.7 g/dL (3.4-5.0) L 06/20/23 04:04 Globulin 4.8 g/dL (2.5-4.5) H 06/20/23 04:04 Albumin/Globulin Ratio 0.4 Ratio (1.1-2.1) L 06/20/23 04:04 Amylase 43 Units/L (25-115) 06/17/23 02:08 Lipase 13 Units/L (16-77) L 06/17/23 02:08 Carcinoembryonic Ag 1.6 ng/mL (<=3.8) 06/17/23 02:08 Specimen Type Clean catch urine 06/17/23 05:05 Urine Color Yellow (YELLOW) 06/17/23 05:05 Urine Appearance Clear (CLEAR) 06/17/23 05:05 Urine pH 7.0 (5.0 - 8.0) 06/17/23 05:05 Ur Specific [place] 1.010 (1.000-1.030) 06/17/23 05:05 Urine Protein 2+ (NEGATIVE) 06/17/23 05:05 Urine Glucose (UA) Negative (NEGATIVE) 06/17/23 05:05 Urine Ketones Negative (NEGATIVE) 06/17/23 05:05 Urine Blood Negative (NEGATIVE) 06/17/23 05:05 Urine Nitrite Negative (NEGATIVE) 06/17/23 05:05 Urine Bilirubin Negative (NEGATIVE) 06/17/23 05:05 Urine Urobilinogen Normal (NORMAL) 06/17/23 05:05 Ur Leukocyte Esterase 1+ (NEGATIVE) 06/17/23 05:05 Urine RBC None seen /HPF (0-3) 06/17/23 05:05 Urine WBC 0-2 /HPF (0-5) 06/17/23 05:05 Ur Squamous Epith Cells Moderate /HPF (NEGATIVE) 06/17/23 05:05 Urine Bacteria Trace /HPF (NEGATIVE) 06/17/23 05:05 Urine Mucus Rare /HPF (NEGATIVE) 06/17/23 05:05 Ur Culture Indicated? No/not indicated 06/17/23 05:05 Blood Type O POSITIVE 06/18/23 06:30 Antibody Screen Negative 06/18/23 06:30 Crossmatch See Detail 06/18/23 06:30 Assessment and Plan 1: Lt colon ca at 35 cm . for transfusion , surgery on wednesday .. 2: GI blood loss anemia 3: chlecystitis 4: hypokalemia Problem Patient Problems: Patient Problems Intractable abdominal pain (Acute) R10.9 Colon cancer metastasized to liver (Acute) C18.9, C78.7
[2023-06-20] MEDS ORDERED: NS 500 ML IV 500 ML IV ONE (14:35)
[2023-06-20] MEDS: TORADOL TAB PO PRN (16:58)
[2023-06-20 18:46] LABS: HEMATOCRIT 30.7 % (36.0-47.0); HEMOGLOBIN 10.3 g/dL (12.0-16.0)
[2023-06-20] MEDS ORDERED: HIBICLENS WASH EXT ONE (19:24)
[2023-06-21] MEDS: TORADOL TAB PO PRN (00:29)
[2023-06-21] MEDS: NS + KCL 20 MEQ/L 1,000 ML with MAGNESIUM SULFATE 50% INJ VIAL 1 G IV SCH ×8 (01:28→17:10)
[2023-06-21] MEDS: DILAUDID INJ IVP PRN ×8 (03:17→20:38)
[2023-06-21 05:17] LABS: BASOPHILS # (AUTO) 0.3 X10^3/uL (0.0-0.1); BASOPHILS % (AUTO) 3.2 % (0.2-1.0); EOSINOPHILS # (AUTO) 0.1 x10^3/uL (0.0-0.2); EOSINOPHILS % (AUTO) 1.2 % (0.9-2.9); HEMATOCRIT 27.8 % (36.0-47.0); HEMOGLOBIN 9.2 g/dL (12.0-16.0); LYMPHOCYTES # (AUTO) 0.9 X10^3/uL (1.3-2.9); LYMPHOCYTES % (AUTO) 8.3 % (21.0-51.0); MEAN CORPUSCULAR HEMOGLOBIN 25.9 pg (27.0-34.0); MEAN CORPUSCULAR HGB CONC 33.3 g/dL (33.0-35.0); MEAN CORPUSCULAR VOLUME 77.9 fL (80.0-100.0); MEAN PLATELET VOLUME 7.1 fL (7.4-11.0); MONOCYTES # (AUTO) 0.9 x10^3/uL (0.3-0.8); MONOCYTES % (AUTO) 8.9 % (0.0-13.0); NEUTROPHILS # (AUTO) 8.1 x10^3/uL (2.2-4.8); NEUTROPHILS % (AUTO) 78.4 % (42.0-75.0); PLATELET COUNT 428 X10^3/uL (150.0-450.0); RED BLOOD COUNT 3.56 X10^6/uL (3.5-5.4); RED CELL DISTRIBUTION WIDTH 17.5 % (11.6-16.5); WHITE BLOOD COUNT 10.3 X10^3/uL (3.6-10.0)
--- NOTE | 2023-06-21 05:39 | EKG ---
Test Reason : Surgery in AM Blood Pressure : */* mmHG Vent. Rate : 84 BPM Atrial Rate : 84 BPM P-R Int : 146 ms QRS Dur : 72 ms QT Int : 384 ms P-R-T Axes : 42 36 23 degrees QTc Int : 453 ms Normal sinus rhythm Normal ECG No previous ECGs available Confirmed by Micah Martinez MD ([id number]) on 06/21/2023 7:43:55 AM Referred By: Confirmed By: Micah Martinez MD
[2023-06-21 05:41] LABS: ALANINE AMINOTRANSFERASE 11 Units/L (12-78); ALBUMIN 1.7 g/dL (3.4-5.0); ALKALINE PHOSPHATASE 177 Units/L (46-116); ASPARTATE AMINO TRANSFERASE 39 Units/L (15-37); BLOOD UREA NITROGEN 5 mg/dL (7-18); CALCIUM 7.5 mg/dL (8.5-10.1); CARBON DIOXIDE 23.7 mmol/L (21-32); CHLORIDE 98 mmol/L (98-107); COR CA(FOR HYPOALB) 9.3 mg/dL (8.5-10.1); GLUCOSE 71 mg/dL (65-99); POTASSIUM 3.7 mmol/L (3.5-5.1); SODIUM 132 mmol/L (136-145); TOTAL PROTEIN 6.7 g/dL (6.4-8.2); eGFR NON BLACK RACES > 60 (>60)
[2023-06-21] MEDS ORDERED: CONSULT PHARMACY - POTASSIUM & MAGNESIUM XX SCH (07:00)
--- NOTE | 2023-06-21 07:19 | RAD ---
EXAM:Portable chestHISTORY:Right-sided abdominal pain, metastatic colon cancerCOMPARISON:None availableFINDINGS:Heart size is normal. Sophia are normal. Lungs are mildly hypoinflated but free of acute infiltrates. Bibasilar subsegmental atelectasis is present. No pleural effusions are identified. Bony thorax is unremarkable.IMPRESSION:Lungs hypoinflated but free of acute infiltratesBibasilar subsegmental atelectasisTHIS IS AN ELECTRONICALLY VERIFIED FINAL REPORT06/21/2023 7:16 AM - Electronically signed by Endy Jennings MD
[2023-06-21] MEDS: ZOFRAN INJ 4 MG VIAL IVP PRN ×2 (08:04→15:53)
[2023-06-21] MEDS: LEVAQUIN PREMIX IV 500 MG 500 MG/100 ML BAG IV SCH (08:43)
[2023-06-21] MEDS ORDERED: K RIDER IV ONE (09:00)
[2023-06-21] MEDS ORDERED: WATER IV ONE (09:00)
[2023-06-21] MEDS ORDERED: FENTANYL VIAL INJ 250 mcg ONE (09:35)
[2023-06-21] MEDS ORDERED: VERSED ONE (09:35)
[2023-06-21] MEDS ORDERED: BRIDION ONE (09:36)
[2023-06-21] MEDS ORDERED: XYLOCAINE 2 % (PLAIN) ONE (09:36)
[2023-06-21] MEDS ORDERED: DIPRIVAN VIAL 20 ML ONE (09:36)
[2023-06-21] MEDS ORDERED: ZEMURON 100 MG VIAL ONE ×2 (09:36→13:39)
[2023-06-21] MEDS ORDERED: PEPCID 20 MG VIAL ONE (09:53)
[2023-06-21] MEDS ORDERED: ZOFRAN INJ 4 MG VIAL ONE ×3 (09:53→15:14)
[2023-06-21] MEDS ORDERED: LR 1,000 ML IV 1,000 ML IV ONE ×3 (10:11→12:34)
[2023-06-21] MEDS ORDERED: ANCEF VIAL 1 GRAM ONE (10:11)
[2023-06-21] MEDS ORDERED: NS 100 ML IV 100 ML ONE (10:12)
[2023-06-21] MEDS ORDERED: SUPRANE ONE ×2 (10:36→11:38)
[2023-06-21] MEDS ORDERED: BACTROBAN TOPICAL OINT ONE (10:55)
[2023-06-21] MEDS ORDERED: POLYMYXIN B SULFATE ONE (10:55)
[2023-06-21] MEDS ORDERED: NEO-SYNEPHRINE INJ ONE (10:58)
[2023-06-21] MEDS ORDERED: FENTANYL VIAL INJ 100 mcg ONE (12:03)
[2023-06-21] MEDS ORDERED: ZOFRAN INJ 4 MG VIAL IVP PRN (12:32)
[2023-06-21] MEDS ORDERED: BARHEMSYS INJ IVP PRN (12:32)
[2023-06-21] MEDS ORDERED: BENADRYL INJ 50 MG VIAL IVP PRN (12:32)
[2023-06-21] MEDS ORDERED: OFIRMEV IV 1000 MG VIAL 1,000 MG/100 ML VIAL IV ONE (13:15)
[2023-06-21] MEDS ORDERED: MARCAINE 0.5% ONE (14:28)
[2023-06-21] MEDS ORDERED: DILAUDID INJ ONE (14:53)
[2023-06-21] MEDS ORDERED: BARHEMSYS INJ ONE (15:01)
[2023-06-21] MEDS: D5 1/2 NS 1,000 ML 1,000 ML IV SCH (15:44)
[2023-06-21] MEDS ORDERED: NS IRRIGATION* 1,000 ML ONE (16:30)
[2023-06-21] MEDS: TORADOL 30 MG VIAL IVP PRN (17:04)
[2023-06-21] MEDS: COMPAZINE INJ IVP PRN (18:36)
--- NOTE | 2023-06-21 20:35 | RAD ---
PROCEDURE: Abdomen X-ray 1 View .HISTORY: NG tube placement.TECHNIQUE: AP supine abdomen view .COMPARISON: 03/30/2023.TECHNICAL QUALITY: Satisfactory .FINDINGS:NG tube tip projected over the body of the stomach in good position.Surgical clips right upper quadrant and projected over the midline lower abdomen and pelvis.Sandip-Liu drain left lower quadrant.No dilated bowel loops.IMPRESSION:Good NG-tube placement.Electronically signed by: Mikel Fitzpatrick (Jun 21, 2023 20:34:49)
[2023-06-21] MEDS: PROTONIX INJ 40 MG VIAL IVP SCH (21:19)
[2023-06-22] MEDS: ZOFRAN INJ 4 MG VIAL IVP PRN ×2 (00:09→20:09)
[2023-06-22] MEDS: DILAUDID INJ IVP PRN ×8 (00:31→23:15)
[2023-06-22] MEDS: TORADOL 30 MG VIAL IVP PRN ×3 (01:41→21:48)
[2023-06-22] MEDS: NS + KCL 20 MEQ/L 1,000 ML with MAGNESIUM SULFATE 50% INJ VIAL 1 G IV SCH ×2 (03:24)
[2023-06-22 05:02] LABS: HEMOGLOBIN 8.7 g/dL (12.0-16.0); MEAN PLATELET VOLUME 7.1 fL (7.4-11.0)
[2023-06-22 05:09] LABS: BASOPHILS # (AUTO) 0.1 X10^3/uL (0.0-0.1); BASOPHILS % (AUTO) 0.6 % (0.2-1.0); EOSINOPHILS % (AUTO) 0.1 % (0.9-2.9); HEMATOCRIT 26.4 % (36.0-47.0); LYMPHOCYTES # (AUTO) 0.9 X10^3/uL (1.3-2.9); LYMPHOCYTES % (AUTO) 10.6 % (21.0-51.0); MEAN CORPUSCULAR HEMOGLOBIN 25.6 pg (27.0-34.0); MEAN CORPUSCULAR HGB CONC 33.1 g/dL (33.0-35.0); MEAN CORPUSCULAR VOLUME 77.4 fL (80.0-100.0); MONOCYTES # (AUTO) 0.5 x10^3/uL (0.3-0.8); MONOCYTES % (AUTO) 6.2 % (0.0-13.0); NEUTROPHILS # (AUTO) 6.8 x10^3/uL (2.2-4.8); NEUTROPHILS % (AUTO) 82.5 % (42.0-75.0); PLATELET COUNT 423 X10^3/uL (150.0-450.0); RED BLOOD COUNT 3.42 X10^6/uL (3.5-5.4); RED CELL DISTRIBUTION WIDTH 18.1 % (11.6-16.5); WHITE BLOOD COUNT 8.2 X10^3/uL (3.6-10.0)
[2023-06-22 05:15] LABS: ALANINE AMINOTRANSFERASE 13 Units/L (12-78); ALBUMIN 1.3 g/dL (3.4-5.0); ALKALINE PHOSPHATASE 135 Units/L (46-116); ASPARTATE AMINO TRANSFERASE 40 Units/L (15-37); BLOOD UREA NITROGEN 4 mg/dL (7-18); CALCIUM 7.4 mg/dL (8.5-10.1); CARBON DIOXIDE 23.8 mmol/L (21-32); CHLORIDE 101 mmol/L (98-107); COR CA(FOR HYPOALB) 9.6 mg/dL (8.5-10.1); CREATININE 0.46 mg/dL (0.55-1.02); GLUCOSE 101 mg/dL (65-99); POTASSIUM 3.6 mmol/L (3.5-5.1); SODIUM 133 mmol/L (136-145); TOTAL PROTEIN 5.5 g/dL (6.4-8.2); eGFR NON BLACK RACES > 60 (>60)
[2023-06-22] MEDS: D5 1/2 NS 1,000 ML 1,000 ML IV SCH ×5 (06:44→22:52)
[2023-06-22] MEDS ORDERED: ATIVAN TAB 1 MG PO PRN (07:20)
[2023-06-22] MEDS ORDERED: DILAUDID INJ ONE (07:28)
[2023-06-22] MEDS ORDERED: ATIVAN INJ 2 MG VIAL ONE (07:28)
[2023-06-22] MEDS: ATIVAN INJ 2 MG VIAL IVP PRN ×3 (07:38→22:51)
--- NOTE | 2023-06-22 08:18 | DR.PROGNOT ---
HOSPITAL PROGRESS NOTE Progress Note for Day of: Progress Note Date: 06/22/23 Chief Complaint Chief Complaint: PO day 1 . c/o incisional pain . mild drainage in JPs. WBC 8.3..Bilirubin 3.5..Alk Phos 135. afebrile .. Past Medical Family Social History Past Med/Fam/Surg Hx: No changes since H&P Allergies: Allergies No Known Drug Allergies Allergy (Verified 06/17/23 08:57) Vital Signs Vital Signs: Vital Signs Temperature 97.3 F Temperature 97.3 F Temperature 97.3 F Pulse Rate 93 Pulse Rate 95 Pulse Rate 90 Pulse Rate 90 Pulse Rate 84 Pulse Rate 93 Pulse Rate 89 Pulse Rate 91 Pulse Rate 91 Pulse Rate 97 Pulse Rate 87 Pulse Rate 88 Pulse Rate 108 Respiratory Rate 24 Respiratory Rate 27 Respiratory Rate 24 Respiratory Rate 24 Respiratory Rate 17 Respiratory Rate 16 Respiratory Rate 20 Respiratory Rate 21 Respiratory Rate 22 Respiratory Rate 16 Respiratory Rate 23 Respiratory Rate 21 Respiratory Rate 20 Respiratory Rate 26 Respiratory Rate 16 Respiratory Rate 20 Respiratory Rate 18 Respiratory Rate 14 Respiratory Rate 18 Respiratory Rate 18 Blood Pressure 127/80 Blood Pressure 118/72 Blood Pressure 118/72 Blood Pressure 114/66 Blood Pressure 114/66 Blood Pressure 112/67 Blood Pressure 112/67 Blood Pressure 117/73 Blood Pressure 117/73 Blood Pressure 116/66 Blood Pressure 116/66 Blood Pressure 114/67 Blood Pressure 114/67 O2 Sat by Pulse Oximetry 97 O2 Sat by Pulse Oximetry 97 O2 Sat by Pulse Oximetry 97 O2 Sat by Pulse Oximetry 96 O2 Sat by Pulse Oximetry 96 O2 Sat by Pulse Oximetry 97 O2 Sat by Pulse Oximetry 95 O2 Sat by Pulse Oximetry 95 O2 Sat by Pulse Oximetry 95 O2 Sat by Pulse Oximetry 95 O2 Sat by Pulse Oximetry 95 O2 Sat by Pulse Oximetry 96 O2 Sat by Pulse Oximetry 98 Physical Exam Oriented: Normal Eyes: Other (mild jaundice ) Nose: Normal Respiratory: Normal Cardiovascular: Normal GI:Auscultation: Normal GI: Tenderness: Other (Rt side and Lt side tenderness , soft abdomen ..) Mood Description: Appropriate Speech Pattern: Clear and Appropriate Laboratory and Diagnostics 06/22/23 04:05 06/22/23 04:05 Labs: 06/17/23 02:15 Blood Blood Culture - Final 06/17/23 02:08 Blood Blood Culture - Final Laboratory WBC 8.2 X10^3/uL (3.6-10.0) 06/22/23 04:05 RBC 3.42 X10^6/uL (3.5-5.4) L 06/22/23 04:05 Hgb 8.7 g/dL (12.0-16.0) L 06/22/23 04:05 Hct 26.4 % (36.0-47.0) L 06/22/23 04:05 MCV 77.4 fL (80.0-100.0) L 06/22/23 04:05 MCH 25.6 pg (27.0-34.0) L 06/22/23 04:05 MCHC 33.1 g/dL (33.0-35.0) 06/22/23 04:05 RDW 18.1 % (11.6-16.5) H 06/22/23 04:05 Plt Count 423 X10^3/uL (150.0-450.0) 06/22/23 04:05 MPV 7.1 fL (7.4-11.0) L 06/22/23 04:05 Neut % (Auto) 82.5 % (42.0-75.0) H 06/22/23 04:05 Lymph % (Auto) 10.6 % (21.0-51.0) L 06/22/23 04:05 [place] % (Auto) 6.2 % (0.0-13.0) 06/22/23 04:05 Eos % (Auto) 0.1 % (0.9-2.9) L 06/22/23 04:05 Baso % (Auto) 0.6 % (0.2-1.0) 06/22/23 04:05 Neut # (Auto) 6.8 x10^3/uL (2.2-4.8) H 06/22/23 04:05 Lymph # (Auto) 0.9 X10^3/uL (1.3-2.9) L 06/22/23 04:05 [place] # (Auto) 0.5 x10^3/uL (0.3-0.8) 06/22/23 04:05 Eos # (Auto) 0.0 x10^3/uL (0.0-0.2) 06/22/23 04:05 Baso # (Auto) 0.1 X10^3/uL (0.0-0.1) 06/22/23 04:05 Absolute Nucleated RBC 0.0 /100WBC 06/22/23 04:05 Sodium 133 mmol/L (136-145) L 06/22/23 04:05 Corrected Sodium TNP 06/22/23 04:05 Potassium 3.6 mmol/L (3.5-5.1) 06/22/23 04:05 Chloride 101 mmol/L (98-107) 06/22/23 04:05 Carbon Dioxide 23.8 mmol/L (21-32) 06/22/23 04:05 BUN 4 mg/dL (7-18) L 06/22/23 04:05 Creatinine 0.46 mg/dL (0.55-1.02) L 06/22/23 04:05 Est GFR (MDRD) Af Amer > 60 (>60) 06/22/23 04:05 Est GFR (MDRD) Non-Af > 60 (>60) 06/22/23 04:05 Glucose 101 mg/dL (65-99) H 06/22/23 04:05 Lactic Acid 0.6 mmol/L (0.4-2.0) 06/17/23 02:08 Calcium 7.4 mg/dL (8.5-10.1) L 06/22/23 04:05 Corrected Calcium 9.6 mg/dL (8.5-10.1) 06/22/23 04:05 Magnesium 2.3 mg/dL (2.0-2.9) 06/21/23 04:06 Total Bilirubin 3.50 mg/dL (0.2-1.0) H 06/22/23 04:05 AST 40 Units/L (15-37) H 06/22/23 04:05 ALT 13 Units/L (12-78) 06/22/23 04:05 Alkaline Phosphatase 135 Units/L (46-116) H 06/22/23 04:05 C-Reactive Protein 100.20 mg/L (0-3.0) H 06/17/23 02:08 Total Protein 5.5 g/dL (6.4-8.2) L 06/22/23 04:05 Albumin 1.3 g/dL (3.4-5.0) L 06/22/23 04:05 Globulin 4.2 g/dL (2.5-4.5) 06/22/23 04:05 Albumin/Globulin Ratio 0.3 Ratio (1.1-2.1) L 06/22/23 04:05 Amylase 43 Units/L (25-115) 06/17/23 02:08 Lipase 13 Units/L (16-77) L 06/17/23 02:08 Carcinoembryonic Ag 1.6 ng/mL (<=3.8) 06/17/23 02:08 Specimen Type Clean catch urine 06/17/23 05:05 Urine Color Yellow (YELLOW) 06/17/23 05:05 Urine Appearance Clear (CLEAR) 06/17/23 05:05 Urine pH 7.0 (5.0 - 8.0) 06/17/23 05:05 Ur Specific [place] 1.010 (1.000-1.030) 06/17/23 05:05 Urine Protein 2+ (NEGATIVE) 06/17/23 05:05 Urine Glucose (UA) Negative (NEGATIVE) 06/17/23 05:05 Urine Ketones Negative (NEGATIVE) 06/17/23 05:05 Urine Blood Negative (NEGATIVE) 06/17/23 05:05 Urine Nitrite Negative (NEGATIVE) 06/17/23 05:05 Urine Bilirubin Negative (NEGATIVE) 06/17/23 05:05 Urine Urobilinogen Normal (NORMAL) 06/17/23 05:05 Ur Leukocyte Esterase 1+ (NEGATIVE) 06/17/23 05:05 Urine RBC None seen /HPF (0-3) 06/17/23 05:05 Urine WBC 0-2 /HPF (0-5) 06/17/23 05:05 Ur Squamous Epith Cells Moderate /HPF (NEGATIVE) 06/17/23 05:05 Urine Bacteria Trace /HPF (NEGATIVE) 06/17/23 05:05 Urine Mucus Rare /HPF (NEGATIVE) 06/17/23 05:05 Ur Culture Indicated? No/not indicated 06/17/23 05:05 Blood Type O POSITIVE 06/18/23 06:30 Antibody Screen Negative 06/18/23 06:30 Crossmatch See Detail 06/18/23 06:30 Assessment and Plan 1: post op colon resection and cholecystectomy .. colon ca with liver mets . same PO care 2: GI blood loss anemia .. colon ca . 3: chlecystitis 4: hypokalemia Problem Patient Problems: Patient Problems Intractable abdominal pain (Acute) R10.9 Colon cancer metastasized to liver (Acute) C18.9, C78.7
[2023-06-22] MEDS: LEVAQUIN PREMIX IV 500 MG 500 MG/100 ML BAG IV SCH (08:53)
[2023-06-22] MEDS: LOVENOX INJ 40 MG SYR SC SCH (08:53)
[2023-06-22] MEDS: PROTONIX INJ 40 MG VIAL IVP SCH ×2 (08:53→20:09)
[2023-06-22] MEDS ORDERED: CONSULT PHARMACY - POTASSIUM & MAGNESIUM XX SCH (09:00)
[2023-06-22] MEDS: K-RIDER 10 MEQ/100 ML WATER 10 MEQ/100 ML BAG IV SCH ×2 (10:41→12:45)
[2023-06-23] MEDS: D5 1/2 NS 1,000 ML 1,000 ML IV SCH ×5 (01:40→22:16)
[2023-06-23] MEDS: DILAUDID INJ IVP PRN ×6 (03:35→22:30)
[2023-06-23 05:33] LABS: BASOPHILS # (AUTO) 0.1 X10^3/uL (0.0-0.1); BASOPHILS % (AUTO) 0.5 % (0.2-1.0); EOSINOPHILS # (AUTO) 0.1 x10^3/uL (0.0-0.2); EOSINOPHILS % (AUTO) 1.1 % (0.9-2.9); HEMATOCRIT 26.2 % (36.0-47.0); HEMOGLOBIN 8.8 g/dL (12.0-16.0); LYMPHOCYTES % (AUTO) 10.5 % (21.0-51.0); MEAN CORPUSCULAR HEMOGLOBIN 25.9 pg (27.0-34.0); MEAN CORPUSCULAR HGB CONC 33.5 g/dL (33.0-35.0); MEAN CORPUSCULAR VOLUME 77.3 fL (80.0-100.0); MEAN PLATELET VOLUME 7.2 fL (7.4-11.0); MONOCYTES # (AUTO) 0.8 x10^3/uL (0.3-0.8); MONOCYTES % (AUTO) 7.9 % (0.0-13.0); NEUTROPHILS # (AUTO) 7.7 x10^3/uL (2.2-4.8); PLATELET COUNT 430 X10^3/uL (150.0-450.0); RED BLOOD COUNT 3.38 X10^6/uL (3.5-5.4); RED CELL DISTRIBUTION WIDTH 18.3 % (11.6-16.5); WHITE BLOOD COUNT 9.6 X10^3/uL (3.6-10.0)
[2023-06-23 05:49] LABS: ALANINE AMINOTRANSFERASE 17 Units/L (12-78); ALBUMIN 1.3 g/dL (3.4-5.0); ALKALINE PHOSPHATASE 137 Units/L (46-116); ASPARTATE AMINO TRANSFERASE 49 Units/L (15-37); BLOOD UREA NITROGEN 3 mg/dL (7-18); CALCIUM 7.3 mg/dL (8.5-10.1); CARBON DIOXIDE 24.1 mmol/L (21-32); CHLORIDE 99 mmol/L (98-107); COR CA(FOR HYPOALB) 9.5 mg/dL (8.5-10.1); CREATININE 0.47 mg/dL (0.55-1.02); GLUCOSE 81 mg/dL (65-99); POTASSIUM 3.6 mmol/L (3.5-5.1); SODIUM 130 mmol/L (136-145); TOTAL PROTEIN 5.6 g/dL (6.4-8.2); eGFR NON BLACK RACES > 60 (>60)
[2023-06-23] MEDS: ATIVAN INJ 2 MG VIAL IVP PRN (06:16)
[2023-06-23] MEDS: LEVAQUIN PREMIX IV 500 MG 500 MG/100 ML BAG IV SCH (09:09)
[2023-06-23] MEDS: PROTONIX INJ 40 MG VIAL IVP SCH ×2 (09:09→21:09)
[2023-06-23] MEDS: LOVENOX INJ 40 MG SYR SC SCH (09:10)
[2023-06-23] MEDS: ZOFRAN INJ 4 MG VIAL IVP PRN (12:39)
--- NOTE | 2023-06-23 13:41 | DR.PROGNOT ---
HOSPITAL PROGRESS NOTE Progress Note for Day of: Progress Note Date: 06/23/23 Chief Complaint Chief Complaint: PO day 12. c/o incisional pain . moderate drainage in JPs. WBC 8.3..Bilirubin 3.5..Alk Phos 135. afebrile .. Past Medical Family Social History Past Med/Fam/Surg Hx: No changes since H&P Allergies: Allergies No Known Drug Allergies Allergy (Verified 06/17/23 08:57) Vital Signs Vital Signs: Vital Signs Temperature 98.6 F Pulse Rate 86 Pulse Rate 87 Pulse Rate 100 Pulse Rate 95 Pulse Rate 87 Pulse Rate 84 Pulse Rate 90 Pulse Rate 91 Pulse Rate 89 Respiratory Rate 19 Respiratory Rate 24 Respiratory Rate 24 Respiratory Rate 25 Respiratory Rate 20 Respiratory Rate 25 Respiratory Rate 20 Respiratory Rate 26 Respiratory Rate 19 Respiratory Rate 16 Respiratory Rate 19 Respiratory Rate 30 Respiratory Rate 22 Respiratory Rate 28 Blood Pressure 119/76 Blood Pressure 113/79 Blood Pressure 130/69 Blood Pressure 120/77 Blood Pressure 119/65 Blood Pressure 112/69 Blood Pressure 107/69 Blood Pressure 116/73 Blood Pressure 116/73 O2 Sat by Pulse Oximetry 95 O2 Sat by Pulse Oximetry 95 O2 Sat by Pulse Oximetry 96 O2 Sat by Pulse Oximetry 96 O2 Sat by Pulse Oximetry 95 O2 Sat by Pulse Oximetry 95 O2 Sat by Pulse Oximetry 94 O2 Sat by Pulse Oximetry 95 O2 Sat by Pulse Oximetry 89 Physical Exam Oriented: Normal Eyes: Other (mild jaundice ) Nose: Normal Respiratory: Normal Cardiovascular: Normal GI:Auscultation: Normal GI: Tenderness: Other (Rt side and Lt side tenderness , soft abdomen ..) Mood Description: Appropriate Speech Pattern: Clear and Appropriate Laboratory and Diagnostics 06/23/23 04:10 06/23/23 04:10 Labs: 06/17/23 02:15 Blood Blood Culture - Final 06/17/23 02:08 Blood Blood Culture - Final Laboratory WBC 9.6 X10^3/uL (3.6-10.0) 06/23/23 04:10 RBC 3.38 X10^6/uL (3.5-5.4) L 06/23/23 04:10 Hgb 8.8 g/dL (12.0-16.0) L 06/23/23 04:10 Hct 26.2 % (36.0-47.0) L 06/23/23 04:10 MCV 77.3 fL (80.0-100.0) L 06/23/23 04:10 MCH 25.9 pg (27.0-34.0) L 06/23/23 04:10 MCHC 33.5 g/dL (33.0-35.0) 06/23/23 04:10 RDW 18.3 % (11.6-16.5) H 06/23/23 04:10 Plt Count 430 X10^3/uL (150.0-450.0) 06/23/23 04:10 MPV 7.2 fL (7.4-11.0) L 06/23/23 04:10 Neut % (Auto) 80.0 % (42.0-75.0) H 06/23/23 04:10 Lymph % (Auto) 10.5 % (21.0-51.0) L 06/23/23 04:10 [place] % (Auto) 7.9 % (0.0-13.0) 06/23/23 04:10 Eos % (Auto) 1.1 % (0.9-2.9) 06/23/23 04:10 Baso % (Auto) 0.5 % (0.2-1.0) 06/23/23 04:10 Neut # (Auto) 7.7 x10^3/uL (2.2-4.8) H 06/23/23 04:10 Lymph # (Auto) 1.0 X10^3/uL (1.3-2.9) L 06/23/23 04:10 [place] # (Auto) 0.8 x10^3/uL (0.3-0.8) 06/23/23 04:10 Eos # (Auto) 0.1 x10^3/uL (0.0-0.2) 06/23/23 04:10 Baso # (Auto) 0.1 X10^3/uL (0.0-0.1) 06/23/23 04:10 Absolute Nucleated RBC 0.0 /100WBC 06/23/23 04:10 Sodium 130 mmol/L (136-145) L 06/23/23 04:10 Corrected Sodium TNP 06/23/23 04:10 Potassium 3.6 mmol/L (3.5-5.1) 06/23/23 04:10 Chloride 99 mmol/L (98-107) 06/23/23 04:10 Carbon Dioxide 24.1 mmol/L (21-32) 06/23/23 04:10 BUN 3 mg/dL (7-18) L 06/23/23 04:10 Creatinine 0.47 mg/dL (0.55-1.02) L 06/23/23 04:10 Est GFR (MDRD) Af Amer > 60 (>60) 06/23/23 04:10 Est GFR (MDRD) Non-Af > 60 (>60) 06/23/23 04:10 Glucose 81 mg/dL (65-99) 06/23/23 04:10 Lactic Acid 0.6 mmol/L (0.4-2.0) 06/17/23 02:08 Calcium 7.3 mg/dL (8.5-10.1) L 06/23/23 04:10 Corrected Calcium 9.5 mg/dL (8.5-10.1) 06/23/23 04:10 Magnesium 2.3 mg/dL (2.0-2.9) 06/21/23 04:06 Total Bilirubin 3.20 mg/dL (0.2-1.0) H 06/23/23 04:10 AST 49 Units/L (15-37) H 06/23/23 04:10 ALT 17 Units/L (12-78) 06/23/23 04:10 Alkaline Phosphatase 137 Units/L (46-116) H 06/23/23 04:10 C-Reactive Protein 100.20 mg/L (0-3.0) H 06/17/23 02:08 Total Protein 5.6 g/dL (6.4-8.2) L 06/23/23 04:10 Albumin 1.3 g/dL (3.4-5.0) L 06/23/23 04:10 Globulin 4.3 g/dL (2.5-4.5) 06/23/23 04:10 Albumin/Globulin Ratio 0.3 Ratio (1.1-2.1) L 06/23/23 04:10 Amylase 43 Units/L (25-115) 06/17/23 02:08 Lipase 13 Units/L (16-77) L 06/17/23 02:08 Carcinoembryonic Ag 1.6 ng/mL (<=3.8) 06/17/23 02:08 Specimen Type Clean catch urine 06/17/23 05:05 Urine Color Yellow (YELLOW) 06/17/23 05:05 Urine Appearance Clear (CLEAR) 06/17/23 05:05 Urine pH 7.0 (5.0 - 8.0) 06/17/23 05:05 Ur Specific [place] 1.010 (1.000-1.030) 06/17/23 05:05 Urine Protein 2+ (NEGATIVE) 06/17/23 05:05 Urine Glucose (UA) Negative (NEGATIVE) 06/17/23 05:05 Urine Ketones Negative (NEGATIVE) 06/17/23 05:05 Urine Blood Negative (NEGATIVE) 06/17/23 05:05 Urine Nitrite Negative (NEGATIVE) 06/17/23 05:05 Urine Bilirubin Negative (NEGATIVE) 06/17/23 05:05 Urine Urobilinogen Normal (NORMAL) 06/17/23 05:05 Ur Leukocyte Esterase 1+ (NEGATIVE) 06/17/23 05:05 Urine RBC None seen /HPF (0-3) 06/17/23 05:05 Urine WBC 0-2 /HPF (0-5) 06/17/23 05:05 Ur Squamous Epith Cells Moderate /HPF (NEGATIVE) 06/17/23 05:05 Urine Bacteria Trace /HPF (NEGATIVE) 06/17/23 05:05 Urine Mucus Rare /HPF (NEGATIVE) 06/17/23 05:05 Ur Culture Indicated? No/not indicated 06/17/23 05:05 Tissue Pathology See comment. 06/18/23 08:45 Blood Type O POSITIVE 06/18/23 06:30 Antibody Screen Negative 06/18/23 06:30 Crossmatch See Detail 06/18/23 06:30 Assessment and Plan 1: post op colon resection and cholecystectomy .. colon ca with liver mets . same PO care 2: GI blood loss anemia .. colon ca . 3: chlecystitis status postcholecystectomy 4: hypokalemia Problem Patient Problems: Patient Problems Intractable abdominal pain (Acute) R10.9 Colon cancer metastasized to liver (Acute) C18.9, C78.7
[2023-06-23] MEDS: VISTARIL PO PRN (21:09)
[2023-06-23] MEDS: TORADOL 30 MG VIAL IVP PRN (21:09)
[2023-06-24] MEDS: D5 1/2 NS 1,000 ML 1,000 ML IV SCH ×2 (00:28→04:51)
[2023-06-24] MEDS: DILAUDID INJ IVP PRN ×5 (02:56→22:23)
[2023-06-24] MEDS: ZOFRAN INJ 4 MG VIAL IVP PRN (02:57)
[2023-06-24 05:36] LABS: BASOPHILS # (AUTO) 0.1 X10^3/uL (0.0-0.1); BASOPHILS % (AUTO) 0.6 % (0.2-1.0); EOSINOPHILS # (AUTO) 0.1 x10^3/uL (0.0-0.2); EOSINOPHILS % (AUTO) 1.3 % (0.9-2.9); HEMATOCRIT 26.3 % (36.0-47.0); HEMOGLOBIN 8.8 g/dL (12.0-16.0); LYMPHOCYTES # (AUTO) 0.8 X10^3/uL (1.3-2.9); LYMPHOCYTES % (AUTO) 8.9 % (21.0-51.0); MEAN CORPUSCULAR HEMOGLOBIN 25.9 pg (27.0-34.0); MEAN CORPUSCULAR HGB CONC 33.4 g/dL (33.0-35.0); MEAN CORPUSCULAR VOLUME 77.4 fL (80.0-100.0); MEAN PLATELET VOLUME 7.2 fL (7.4-11.0); MONOCYTES # (AUTO) 0.7 x10^3/uL (0.3-0.8); MONOCYTES % (AUTO) 7.6 % (0.0-13.0); NEUTROPHILS # (AUTO) 7.4 x10^3/uL (2.2-4.8); NEUTROPHILS % (AUTO) 81.6 % (42.0-75.0); PLATELET COUNT 418 X10^3/uL (150.0-450.0); RED CELL DISTRIBUTION WIDTH 18.5 % (11.6-16.5)
[2023-06-24 05:43] LABS: ALANINE AMINOTRANSFERASE 17 Units/L (12-78); ALBUMIN 1.2 g/dL (3.4-5.0); ALKALINE PHOSPHATASE 136 Units/L (46-116); ASPARTATE AMINO TRANSFERASE 51 Units/L (15-37); BLOOD UREA NITROGEN 2 mg/dL (7-18); CALCIUM 7.3 mg/dL (8.5-10.1); CARBON DIOXIDE 26.5 mmol/L (21-32); CHLORIDE 99 mmol/L (98-107); COR CA(FOR HYPOALB) 9.5 mg/dL (8.5-10.1); CREATININE 0.45 mg/dL (0.55-1.02); GLUCOSE 78 mg/dL (65-99); MAGNESIUM 1.5 mg/dL (2.0-2.9); POTASSIUM 3.2 mmol/L (3.5-5.1); SODIUM 130 mmol/L (136-145); TOTAL PROTEIN 5.5 g/dL (6.4-8.2); eGFR NON BLACK RACES > 60 (>60)
[2023-06-24] MEDS ORDERED: CONSULT PHARMACY - POTASSIUM & MAGNESIUM XX SCH (07:00)
[2023-06-24] MEDS ORDERED: ALBUMIN HUMAN 25%- 100 ML 100 ML IV ONE (07:01)
--- NOTE | 2023-06-24 08:01 | DR.PROGNOT ---
HOSPITAL PROGRESS NOTE Progress Note for Day of: Progress Note Date: 06/24/23 Chief Complaint Chief Complaint: PO day 3. tolerating liquid diet .. still having significant incisional pain . moderate drainage in JPs. pathology report from the colon Bx showed poorly differentiated adenocarcinoma of the colon. WBC 8.3..Bilirubin 3.5..Alk Phos 135. afebrile .. Past Medical Family Social History Past Med/Fam/Surg Hx: No changes since H&P Allergies: Allergies No Known Drug Allergies Allergy (Verified 06/17/23 08:57) Vital Signs Vital Signs: Vital Signs Temperature 98.0 F Pulse Rate 78 Pulse Rate 78 Pulse Rate 85 Pulse Rate 80 Pulse Rate 80 Pulse Rate 80 Pulse Rate 76 Pulse Rate 77 Respiratory Rate 20 Respiratory Rate 16 Respiratory Rate 20 Respiratory Rate 22 Respiratory Rate 12 Respiratory Rate 20 Respiratory Rate 20 Respiratory Rate 23 Respiratory Rate 20 Respiratory Rate 11 Respiratory Rate 18 Respiratory Rate 17 Blood Pressure 113/60 Blood Pressure 115/65 Blood Pressure 107/58 Blood Pressure 103/73 Blood Pressure 123/69 Blood Pressure 115/62 Blood Pressure 114/59 O2 Sat by Pulse Oximetry 93 O2 Sat by Pulse Oximetry 94 O2 Sat by Pulse Oximetry 95 O2 Sat by Pulse Oximetry 93 O2 Sat by Pulse Oximetry 93 O2 Sat by Pulse Oximetry 96 O2 Sat by Pulse Oximetry 95 O2 Sat by Pulse Oximetry 95 Physical Exam Oriented: Normal Eyes: Other (mild jaundice ) Nose: Normal Respiratory: Normal Cardiovascular: Normal GI:Auscultation: Normal GI: Tenderness: Other (Rt side and Lt side tenderness , soft abdomen ..) Mood Description: Appropriate Speech Pattern: Clear and Appropriate Laboratory and Diagnostics 06/24/23 04:21 06/24/23 04:21 Labs: 06/17/23 02:15 Blood Blood Culture - Final 06/17/23 02:08 Blood Blood Culture - Final Laboratory WBC 9.0 X10^3/uL (3.6-10.0) 06/24/23 04:21 RBC 3.40 X10^6/uL (3.5-5.4) L 06/24/23 04:21 Hgb 8.8 g/dL (12.0-16.0) L 06/24/23 04:21 Hct 26.3 % (36.0-47.0) L 06/24/23 04:21 MCV 77.4 fL (80.0-100.0) L 06/24/23 04:21 MCH 25.9 pg (27.0-34.0) L 06/24/23 04:21 MCHC 33.4 g/dL (33.0-35.0) 06/24/23 04:21 RDW 18.5 % (11.6-16.5) H 06/24/23 04:21 Plt Count 418 X10^3/uL (150.0-450.0) 06/24/23 04:21 MPV 7.2 fL (7.4-11.0) L 06/24/23 04:21 Neut % (Auto) 81.6 % (42.0-75.0) H 06/24/23 04:21 Lymph % (Auto) 8.9 % (21.0-51.0) L 06/24/23 04:21 [place] % (Auto) 7.6 % (0.0-13.0) 06/24/23 04:21 Eos % (Auto) 1.3 % (0.9-2.9) 06/24/23 04:21 Baso % (Auto) 0.6 % (0.2-1.0) 06/24/23 04:21 Neut # (Auto) 7.4 x10^3/uL (2.2-4.8) H 06/24/23 04:21 Lymph # (Auto) 0.8 X10^3/uL (1.3-2.9) L 06/24/23 04:21 [place] # (Auto) 0.7 x10^3/uL (0.3-0.8) 06/24/23 04:21 Eos # (Auto) 0.1 x10^3/uL (0.0-0.2) 06/24/23 04:21 Baso # (Auto) 0.1 X10^3/uL (0.0-0.1) 06/24/23 04:21 Absolute Nucleated RBC 0.0 /100WBC 06/24/23 04:21 Sodium 130 mmol/L (136-145) L 06/24/23 04:21 Corrected Sodium TNP 06/24/23 04:21 Potassium 3.2 mmol/L (3.5-5.1) L 06/24/23 04:21 Chloride 99 mmol/L (98-107) 06/24/23 04:21 Carbon Dioxide 26.5 mmol/L (21-32) 06/24/23 04:21 BUN 2 mg/dL (7-18) L 06/24/23 04:21 Creatinine 0.45 mg/dL (0.55-1.02) L 06/24/23 04:21 Est GFR (MDRD) Af Amer > 60 (>60) 06/24/23 04:21 Est GFR (MDRD) Non-Af > 60 (>60) 06/24/23 04:21 Glucose 78 mg/dL (65-99) 06/24/23 04:21 Lactic Acid 0.6 mmol/L (0.4-2.0) 06/17/23 02:08 Calcium 7.3 mg/dL (8.5-10.1) L 06/24/23 04:21 Corrected Calcium 9.5 mg/dL (8.5-10.1) 06/24/23 04:21 Magnesium 1.5 mg/dL (2.0-2.9) L 06/24/23 04:21 Total Bilirubin 3.10 mg/dL (0.2-1.0) H 06/24/23 04:21 AST 51 Units/L (15-37) H 06/24/23 04:21 ALT 17 Units/L (12-78) 06/24/23 04:21 Alkaline Phosphatase 136 Units/L (46-116) H 06/24/23 04:21 C-Reactive Protein 100.20 mg/L (0-3.0) H 06/17/23 02:08 Total Protein 5.5 g/dL (6.4-8.2) L 06/24/23 04:21 Albumin 1.2 g/dL (3.4-5.0) L 06/24/23 04:21 Globulin 4.3 g/dL (2.5-4.5) 06/24/23 04:21 Albumin/Globulin Ratio 0.3 Ratio (1.1-2.1) L 06/24/23 04:21 Amylase 43 Units/L (25-115) 06/17/23 02:08 Lipase 13 Units/L (16-77) L 06/17/23 02:08 Carcinoembryonic Ag 1.6 ng/mL (<=3.8) 06/17/23 02:08 Specimen Type Clean catch urine 06/17/23 05:05 Urine Color Yellow (YELLOW) 06/17/23 05:05 Urine Appearance Clear (CLEAR) 06/17/23 05:05 Urine pH 7.0 (5.0 - 8.0) 06/17/23 05:05 Ur Specific [place] 1.010 (1.000-1.030) 06/17/23 05:05 Urine Protein 2+ (NEGATIVE) 06/17/23 05:05 Urine Glucose (UA) Negative (NEGATIVE) 06/17/23 05:05 Urine Ketones Negative (NEGATIVE) 06/17/23 05:05 Urine Blood Negative (NEGATIVE) 06/17/23 05:05 Urine Nitrite Negative (NEGATIVE) 06/17/23 05:05 Urine Bilirubin Negative (NEGATIVE) 06/17/23 05:05 Urine Urobilinogen Normal (NORMAL) 06/17/23 05:05 Ur Leukocyte Esterase 1+ (NEGATIVE) 06/17/23 05:05 Urine RBC None seen /HPF (0-3) 06/17/23 05:05 Urine WBC 0-2 /HPF (0-5) 06/17/23 05:05 Ur Squamous Epith Cells Moderate /HPF (NEGATIVE) 06/17/23 05:05 Urine Bacteria Trace /HPF (NEGATIVE) 06/17/23 05:05 Urine Mucus Rare /HPF (NEGATIVE) 06/17/23 05:05 Ur Culture Indicated? No/not indicated 06/17/23 05:05 Tissue Pathology See comment. 06/18/23 08:45 Blood Type O POSITIVE 06/18/23 06:30 Antibody Screen Negative 06/18/23 06:30 Crossmatch See Detail 06/18/23 06:30 Assessment and Plan 1: post op colon resection and cholecystectomy .. colon ca with liver mets ( [facility] same PO care . on full liquid .. 2: GI blood loss anemia .. colon ca . 3: chlecystitis status post cholecystectomy 4: hypokalemia Problem Patient Problems: Patient Problems Intractable abdominal pain (Acute) R10.9 Colon cancer metastasized to liver (Acute) C18.9, C78.7
[2023-06-24] MEDS: PERCOCET TAB 5/325 MG PO PRN ×3 (08:40→20:14)
[2023-06-24] MEDS ORDERED: K-RIDER 10 MEQ/100 ML WATER 10 MEQ/100 ML BAG IV SCH (09:00)
[2023-06-24] MEDS ORDERED: MAGNESIUM SULFATE 1 GRAM/100 mL PREMIX 1 G/100 ML BAG IV SCH (09:00)
[2023-06-24] MEDS: LEVAQUIN PREMIX IV 500 MG 500 MG/100 ML BAG IV SCH (09:42)
[2023-06-24] MEDS: PROTONIX INJ 40 MG VIAL IVP SCH ×2 (09:42→20:13)
[2023-06-24] MEDS: LOVENOX INJ 40 MG SYR SC SCH (09:43)
[2023-06-24] MEDS: D5 1/2 NS + KCL 20 MEQ/L 1,000 ML with MAGNESIUM SULFATE 50% INJ VIAL 1 G IV SCH ×4 (10:00→20:13)
[2023-06-24] MEDS: ATIVAN INJ 2 MG VIAL IVP PRN (20:13)
[2023-06-25] MEDS: TORADOL 30 MG VIAL IVP PRN ×3 (01:41→23:38)
[2023-06-25] MEDS: D5 1/2 NS + KCL 20 MEQ/L 1,000 ML with MAGNESIUM SULFATE 50% INJ VIAL 1 G IV SCH ×8 (01:41→21:29)
[2023-06-25 05:28] LABS: BASOPHILS # (AUTO) 0.1 X10^3/uL (0.0-0.1); BASOPHILS % (AUTO) 0.7 % (0.2-1.0); EOSINOPHILS # (AUTO) 0.1 x10^3/uL (0.0-0.2); EOSINOPHILS % (AUTO) 1.4 % (0.9-2.9); HEMATOCRIT 26.4 % (36.0-47.0); HEMOGLOBIN 8.8 g/dL (12.0-16.0); LYMPHOCYTES % (AUTO) 10.8 % (21.0-51.0); MEAN CORPUSCULAR HEMOGLOBIN 25.6 pg (27.0-34.0); MEAN CORPUSCULAR HGB CONC 33.2 g/dL (33.0-35.0); MEAN PLATELET VOLUME 7.3 fL (7.4-11.0); MONOCYTES # (AUTO) 0.8 x10^3/uL (0.3-0.8); MONOCYTES % (AUTO) 8.7 % (0.0-13.0); NEUTROPHILS # (AUTO) 7.4 x10^3/uL (2.2-4.8); NEUTROPHILS % (AUTO) 78.4 % (42.0-75.0); PLATELET COUNT 428 X10^3/uL (150.0-450.0); RED BLOOD COUNT 3.42 X10^6/uL (3.5-5.4); RED CELL DISTRIBUTION WIDTH 18.8 % (11.6-16.5); WHITE BLOOD COUNT 9.4 X10^3/uL (3.6-10.0)
[2023-06-25 05:44] LABS: ALANINE AMINOTRANSFERASE 18 Units/L (12-78); ALBUMIN 1.5 g/dL (3.4-5.0); ALKALINE PHOSPHATASE 146 Units/L (46-116); ASPARTATE AMINO TRANSFERASE 48 Units/L (15-37); BLOOD UREA NITROGEN 2 mg/dL (7-18); CALCIUM 7.4 mg/dL (8.5-10.1); CHLORIDE 100 mmol/L (98-107); COR CA(FOR HYPOALB) 9.4 mg/dL (8.5-10.1); CREATININE 0.49 mg/dL (0.55-1.02); GLUCOSE 79 mg/dL (65-99); MAGNESIUM 1.7 mg/dL (2.0-2.9); POTASSIUM 3.3 mmol/L (3.5-5.1); SODIUM 133 mmol/L (136-145); TOTAL PROTEIN 5.6 g/dL (6.4-8.2); eGFR NON BLACK RACES > 60 (>60)
[2023-06-25] MEDS: DILAUDID INJ IVP PRN ×4 (06:28→21:50)
[2023-06-25] MEDS: ZOFRAN INJ 4 MG VIAL IVP PRN ×2 (06:29→18:24)
[2023-06-25] MEDS: LEVAQUIN PREMIX IV 500 MG 500 MG/100 ML BAG IV SCH (08:25)
[2023-06-25] MEDS: LOVENOX INJ 40 MG SYR SC SCH (08:25)
[2023-06-25] MEDS: PROTONIX INJ 40 MG VIAL IVP SCH ×2 (08:26→21:00)
[2023-06-25] MEDS: PERCOCET TAB 5/325 MG PO PRN ×2 (08:49→19:21)
[2023-06-25] MEDS: ATIVAN INJ 2 MG VIAL IVP PRN (10:02)
--- NOTE | 2023-06-25 12:15 | DR.PROGNOT ---
HOSPITAL PROGRESS NOTE Progress Note for Day of: Progress Note Date: 06/25/23 Chief Complaint Chief Complaint: PO day 4. tolerating liquid diet.. no BM yet .... still having significant incisional pain . moderate drainage in JPs. pathology report from the colon Bx showed poorly differentiated adenocarcinoma of the colon. WBC 9.4.. Hgb 8.8 .Bilirubin 3.5..Alk Phos 135. afebrile .. DEMOND LLQ was removed .. Past Medical Family Social History Past Med/Fam/Surg Hx: No changes since H&P Allergies: Allergies No Known Drug Allergies Allergy (Verified 06/17/23 08:57) Vital Signs Vital Signs: Vital Signs Temperature 98.3 F Pulse Rate 92 Pulse Rate 88 Pulse Rate 84 Pulse Rate 77 Pulse Rate 79 Pulse Rate 81 Pulse Rate 80 Respiratory Rate 20 Respiratory Rate 20 Respiratory Rate 23 Respiratory Rate 20 Respiratory Rate 20 Respiratory Rate 33 Respiratory Rate 18 Respiratory Rate 25 Respiratory Rate 20 Respiratory Rate 17 Respiratory Rate 17 Respiratory Rate 18 Respiratory Rate 18 Respiratory Rate 21 Respiratory Rate 17 Blood Pressure 131/80 Blood Pressure 118/74 Blood Pressure 118/73 Blood Pressure 110/62 Blood Pressure 114/61 Blood Pressure 127/78 Blood Pressure 116/71 O2 Sat by Pulse Oximetry 96 O2 Sat by Pulse Oximetry 97 O2 Sat by Pulse Oximetry 98 O2 Sat by Pulse Oximetry 96 O2 Sat by Pulse Oximetry 96 O2 Sat by Pulse Oximetry 96 O2 Sat by Pulse Oximetry 95 Physical Exam Oriented: Normal Eyes: Other (mild jaundice ) Nose: Normal Respiratory: Normal Cardiovascular: Normal GI:Auscultation: Normal GI: Tenderness: Other (Rt side and Lt side tenderness , soft abdomen ..) Mood Description: Appropriate Speech Pattern: Clear and Appropriate Laboratory and Diagnostics 06/25/23 04:05 06/25/23 04:05 Labs: 06/17/23 02:15 Blood Blood Culture - Final 06/17/23 02:08 Blood Blood Culture - Final Laboratory WBC 9.4 X10^3/uL (3.6-10.0) 06/25/23 04:05 RBC 3.42 X10^6/uL (3.5-5.4) L 06/25/23 04:05 Hgb 8.8 g/dL (12.0-16.0) L 06/25/23 04:05 Hct 26.4 % (36.0-47.0) L 06/25/23 04:05 MCV 77.0 fL (80.0-100.0) L 06/25/23 04:05 MCH 25.6 pg (27.0-34.0) L 06/25/23 04:05 MCHC 33.2 g/dL (33.0-35.0) 06/25/23 04:05 RDW 18.8 % (11.6-16.5) H 06/25/23 04:05 Plt Count 428 X10^3/uL (150.0-450.0) 06/25/23 04:05 MPV 7.3 fL (7.4-11.0) L 06/25/23 04:05 Neut % (Auto) 78.4 % (42.0-75.0) H 06/25/23 04:05 Lymph % (Auto) 10.8 % (21.0-51.0) L 06/25/23 04:05 [place] % (Auto) 8.7 % (0.0-13.0) 06/25/23 04:05 Eos % (Auto) 1.4 % (0.9-2.9) 06/25/23 04:05 Baso % (Auto) 0.7 % (0.2-1.0) 06/25/23 04:05 Neut # (Auto) 7.4 x10^3/uL (2.2-4.8) H 06/25/23 04:05 Lymph # (Auto) 1.0 X10^3/uL (1.3-2.9) L 06/25/23 04:05 [place] # (Auto) 0.8 x10^3/uL (0.3-0.8) 06/25/23 04:05 Eos # (Auto) 0.1 x10^3/uL (0.0-0.2) 06/25/23 04:05 Baso # (Auto) 0.1 X10^3/uL (0.0-0.1) 06/25/23 04:05 Absolute Nucleated RBC 0.0 /100WBC 06/25/23 04:05 Sodium 133 mmol/L (136-145) L 06/25/23 04:05 Corrected Sodium TNP 06/25/23 04:05 Potassium 3.3 mmol/L (3.5-5.1) L 06/25/23 04:05 Chloride 100 mmol/L (98-107) 06/25/23 04:05 Carbon Dioxide 24.0 mmol/L (21-32) 06/25/23 04:05 BUN 2 mg/dL (7-18) L 06/25/23 04:05 Creatinine 0.49 mg/dL (0.55-1.02) L 06/25/23 04:05 Est GFR (MDRD) Af Amer > 60 (>60) 06/25/23 04:05 Est GFR (MDRD) Non-Af > 60 (>60) 06/25/23 04:05 Glucose 79 mg/dL (65-99) 06/25/23 04:05 Lactic Acid 0.6 mmol/L (0.4-2.0) 06/17/23 02:08 Calcium 7.4 mg/dL (8.5-10.1) L 06/25/23 04:05 Corrected Calcium 9.4 mg/dL (8.5-10.1) 06/25/23 04:05 Magnesium 1.7 mg/dL (2.0-2.9) L 06/25/23 04:05 Total Bilirubin 3.90 mg/dL (0.2-1.0) H 06/25/23 04:05 AST 48 Units/L (15-37) H 06/25/23 04:05 ALT 18 Units/L (12-78) 06/25/23 04:05 Alkaline Phosphatase 146 Units/L (46-116) H 06/25/23 04:05 C-Reactive Protein 100.20 mg/L (0-3.0) H 06/17/23 02:08 Total Protein 5.6 g/dL (6.4-8.2) L 06/25/23 04:05 Albumin 1.5 g/dL (3.4-5.0) L 06/25/23 04:05 Globulin 4.1 g/dL (2.5-4.5) 06/25/23 04:05 Albumin/Globulin Ratio 0.4 Ratio (1.1-2.1) L 06/25/23 04:05 Amylase 43 Units/L (25-115) 06/17/23 02:08 Lipase 13 Units/L (16-77) L 06/17/23 02:08 Carcinoembryonic Ag 1.6 ng/mL (<=3.8) 06/17/23 02:08 Specimen Type Clean catch urine 06/17/23 05:05 Urine Color Yellow (YELLOW) 06/17/23 05:05 Urine Appearance Clear (CLEAR) 06/17/23 05:05 Urine pH 7.0 (5.0 - 8.0) 06/17/23 05:05 Ur Specific [place] 1.010 (1.000-1.030) 06/17/23 05:05 Urine Protein 2+ (NEGATIVE) 06/17/23 05:05 Urine Glucose (UA) Negative (NEGATIVE) 06/17/23 05:05 Urine Ketones Negative (NEGATIVE) 06/17/23 05:05 Urine Blood Negative (NEGATIVE) 06/17/23 05:05 Urine Nitrite Negative (NEGATIVE) 06/17/23 05:05 Urine Bilirubin Negative (NEGATIVE) 06/17/23 05:05 Urine Urobilinogen Normal (NORMAL) 06/17/23 05:05 Ur Leukocyte Esterase 1+ (NEGATIVE) 06/17/23 05:05 Urine RBC None seen /HPF (0-3) 06/17/23 05:05 Urine WBC 0-2 /HPF (0-5) 06/17/23 05:05 Ur Squamous Epith Cells Moderate /HPF (NEGATIVE) 06/17/23 05:05 Urine Bacteria Trace /HPF (NEGATIVE) 06/17/23 05:05 Urine Mucus Rare /HPF (NEGATIVE) 06/17/23 05:05 Ur Culture Indicated? No/not indicated 06/17/23 05:05 Tissue Pathology See comment. 06/18/23 08:45 Blood Type O POSITIVE 06/18/23 06:30 Antibody Screen Negative 06/18/23 06:30 Crossmatch See Detail 06/18/23 06:30 Assessment and Plan 1: post op colon resection and cholecystectomy .. colon ca with liver mets ( Choriocarcinoma from liver Bx from [place] ). same PO care . on soft diet . .. 2: GI blood loss anemia .. colon ca . 3: chlecystitis status post cholecystectomy 4: hypokalemia Problem Patient Problems: Patient Problems Intractable abdominal pain (Acute) R10.9 Colon cancer metastasized to liver (Acute) C18.9, C78.7
[2023-06-25] MEDS: COMPAZINE INJ IVP PRN (20:19)
[2023-06-26] MEDS: DILAUDID INJ IVP PRN ×6 (01:31→22:23)
[2023-06-26] MEDS: PERCOCET TAB 5/325 MG PO PRN ×2 (04:09→18:32)
[2023-06-26 06:39] LABS: BASOPHILS % (AUTO) 0.4 % (0.2-1.0); EOSINOPHILS # (AUTO) 0.1 x10^3/uL (0.0-0.2); EOSINOPHILS % (AUTO) 0.8 % (0.9-2.9); HEMATOCRIT 27.3 % (36.0-47.0); LYMPHOCYTES # (AUTO) 1.1 X10^3/uL (1.3-2.9); LYMPHOCYTES % (AUTO) 9.5 % (21.0-51.0); MEAN CORPUSCULAR HEMOGLOBIN 25.6 pg (27.0-34.0); MEAN CORPUSCULAR VOLUME 77.5 fL (80.0-100.0); MONOCYTES # (AUTO) 0.9 x10^3/uL (0.3-0.8); MONOCYTES % (AUTO) 8.2 % (0.0-13.0); NEUTROPHILS # (AUTO) 9.1 x10^3/uL (2.2-4.8); NEUTROPHILS % (AUTO) 81.1 % (42.0-75.0); PLATELET COUNT 442 X10^3/uL (150.0-450.0); RED BLOOD COUNT 3.52 X10^6/uL (3.5-5.4); RED CELL DISTRIBUTION WIDTH 19.2 % (11.6-16.5); WHITE BLOOD COUNT 11.3 X10^3/uL (3.6-10.0)
[2023-06-26 06:55] LABS: ALANINE AMINOTRANSFERASE 16 Units/L (12-78); ALBUMIN 1.4 g/dL (3.4-5.0); ALKALINE PHOSPHATASE 167 Units/L (46-116); ASPARTATE AMINO TRANSFERASE 57 Units/L (15-37); BLOOD UREA NITROGEN 4 mg/dL (7-18); CALCIUM 7.5 mg/dL (8.5-10.1); CHLORIDE 98 mmol/L (98-107); COR CA(FOR HYPOALB) 9.6 mg/dL (8.5-10.1); CREATININE 0.51 mg/dL (0.55-1.02); GLUCOSE 83 mg/dL (65-99); MAGNESIUM 1.9 mg/dL (2.0-2.9); POTASSIUM 3.9 mmol/L (3.5-5.1); SODIUM 132 mmol/L (136-145); TOTAL PROTEIN 5.8 g/dL (6.4-8.2); eGFR NON BLACK RACES > 60 (>60)
[2023-06-26] MEDS: D5 1/2 NS + KCL 20 MEQ/L 1,000 ML with MAGNESIUM SULFATE 50% INJ VIAL 1 G IV SCH ×2 (08:25)
[2023-06-26] MEDS: PROTONIX INJ 40 MG VIAL IVP SCH ×2 (08:25→20:46)
[2023-06-26] MEDS: LOVENOX INJ 40 MG SYR SC SCH (08:25)
[2023-06-26] MEDS: NS + KCL 20 MEQ/L 1,000 ML IV SCH ×2 (12:58→20:45)
[2023-06-26] MEDS: ZOFRAN INJ 4 MG VIAL IVP PRN ×2 (13:02→19:23)
[2023-06-26] MEDS: ATIVAN INJ 2 MG VIAL IVP PRN (18:32)
[2023-06-26] MEDS: COMPAZINE INJ IVP PRN (18:32)
[2023-06-27] MEDS: VISTARIL PO PRN ×2 (00:31→23:22)
[2023-06-27] MEDS: PERCOCET TAB 5/325 MG PO PRN ×3 (00:32→23:22)
[2023-06-27] MEDS: ZOFRAN INJ 4 MG VIAL IVP PRN (01:41)
[2023-06-27] MEDS: DILAUDID INJ IVP PRN ×6 (01:41→20:09)
[2023-06-27] MEDS: NS + KCL 20 MEQ/L 1,000 ML IV SCH ×3 (04:34→20:08)
[2023-06-27 05:13] LABS: BASOPHILS # (AUTO) 0.1 X10^3/uL (0.0-0.1); BASOPHILS % (AUTO) 0.8 % (0.2-1.0); EOSINOPHILS # (AUTO) 0.1 x10^3/uL (0.0-0.2); EOSINOPHILS % (AUTO) 0.9 % (0.9-2.9); HEMATOCRIT 29.3 % (36.0-47.0); HEMOGLOBIN 9.6 g/dL (12.0-16.0); LYMPHOCYTES # (AUTO) 1.3 X10^3/uL (1.3-2.9); LYMPHOCYTES % (AUTO) 10.5 % (21.0-51.0); MEAN CORPUSCULAR HEMOGLOBIN 25.5 pg (27.0-34.0); MEAN CORPUSCULAR HGB CONC 32.7 g/dL (33.0-35.0); MEAN CORPUSCULAR VOLUME 77.8 fL (80.0-100.0); MEAN PLATELET VOLUME 7.5 fL (7.4-11.0); MONOCYTES % (AUTO) 7.9 % (0.0-13.0); NEUTROPHILS # (AUTO) 10.1 x10^3/uL (2.2-4.8); NEUTROPHILS % (AUTO) 79.9 % (42.0-75.0); PLATELET COUNT 475 X10^3/uL (150.0-450.0); RED BLOOD COUNT 3.77 X10^6/uL (3.5-5.4); RED CELL DISTRIBUTION WIDTH 19.3 % (11.6-16.5); WHITE BLOOD COUNT 12.6 X10^3/uL (3.6-10.0)
[2023-06-27 05:32] LABS: ALANINE AMINOTRANSFERASE 22 Units/L (12-78); ALBUMIN 1.5 g/dL (3.4-5.0); ALKALINE PHOSPHATASE 191 Units/L (46-116); ASPARTATE AMINO TRANSFERASE 72 Units/L (15-37); BLOOD UREA NITROGEN 3 mg/dL (7-18); CALCIUM 7.5 mg/dL (8.5-10.1); CARBON DIOXIDE 22.7 mmol/L (21-32); CHLORIDE 97 mmol/L (98-107); COR CA(FOR HYPOALB) 9.5 mg/dL (8.5-10.1); CREATININE 0.48 mg/dL (0.55-1.02); GLUCOSE 71 mg/dL (65-99); MAGNESIUM 1.6 mg/dL (2.0-2.9); POTASSIUM 4.2 mmol/L (3.5-5.1); SODIUM 128 mmol/L (136-145); TOTAL PROTEIN 6.2 g/dL (6.4-8.2); eGFR NON BLACK RACES > 60 (>60)
[2023-06-27] MEDS ORDERED: CONSULT PHARMACY - POTASSIUM & MAGNESIUM XX SCH (06:00)
--- NOTE | 2023-06-27 07:04 | RAD ---
EXAM:AP chestHISTORY:Pleuritic chest painCOMPARISON:06/21/2023FINDINGS:Heart size normal. Diaphragm is elevated with low lung volumes. No airspace disease is noted in the left lung. There is compressive atelectasis adjacent to the elevated right diaphragm. The upper lobes are clear.IMPRESSION:Mild right basal atelectasis accentuated by pulmonary hypoinflation.THIS IS AN ELECTRONICALLY VERIFIED FINAL REPORT06/27/2023 7:00 AM - Electronically signed by Zafar Malhotra MD
[2023-06-27] MEDS: MAG-OX TAB PO SCH ×2 (08:13→10:13)
[2023-06-27] MEDS: LOVENOX INJ 40 MG SYR SC SCH (08:14)
[2023-06-27] MEDS: COMPAZINE INJ IVP PRN (08:14)
[2023-06-27] MEDS: PROTONIX INJ 40 MG VIAL IVP SCH ×2 (08:14→20:08)
[2023-06-27] MEDS: MYLICON TAB 80 MG CHEW PO PRN ×2 (08:56→20:09)
[2023-06-27 10:40] LABS: BILIRUBIN,URINE 1+ (NEGATIVE); BLOOD/HEMOGLOBIN,URINE NEGATIVE (NEGATIVE); GLUCOSE, URINE NEGATIVE (NEGATIVE); KETONES,URINE 2+ (NEGATIVE); LEUKOCYTE ESTERASE ,URINE 2+ (NEGATIVE); NITRITES,URINE NEGATIVE (NEGATIVE); PROTEIN,URINE 1+ (NEGATIVE); UROBILINOGEN,URINE 2+ (NORMAL)
[2023-06-27 10:50] LABS: APPEARANCE,URINE HAZY (CLEAR); BACTERIA,URINE 2+ /HPF (NEGATIVE); COLOR,URINE YELLOW (YELLOW); RBC,URINE 0-2 /HPF (0-3); SQUAMOUS EPITHELIAL CELL,UR NUMEROUS /HPF (NEGATIVE)
[2023-06-27] MEDS ORDERED: CORTEF ONE (11:22)
[2023-06-27] MEDS: CORTEF PO SCH (11:33)
[2023-06-27] MEDS: MAGNESIUM SULFATE 1 GRAM/100 mL PREMIX 1 G/100 ML BAG IV SCH ×2 (11:54→13:23)
[2023-06-27] MEDS ORDERED: NS 100 ML IV 100 ML with VENOFER 200 MG IV ONE ×2 (12:00)
[2023-06-27] MEDS: ATIVAN INJ 2 MG VIAL IVP PRN (13:37)
[2023-06-28] MEDS: DILAUDID INJ IVP PRN ×3 (00:20→06:17)
[2023-06-28] MEDS: NS + KCL 20 MEQ/L 1,000 ML IV SCH (05:04)
[2023-06-28] MEDS ORDERED: CORTEF ONE ×2 (05:06→12:17)
[2023-06-28] MEDS: PERCOCET TAB 5/325 MG PO PRN ×2 (05:08→12:23)
[2023-06-28 05:54] LABS: BASOPHILS # (AUTO) 0.1 X10^3/uL (0.0-0.1); BASOPHILS % (AUTO) 0.6 % (0.2-1.0); EOSINOPHILS # (AUTO) 0.1 x10^3/uL (0.0-0.2); HEMATOCRIT 27.2 % (36.0-47.0); HEMOGLOBIN 8.9 g/dL (12.0-16.0); LYMPHOCYTES # (AUTO) 1.2 X10^3/uL (1.3-2.9); LYMPHOCYTES % (AUTO) 11.4 % (21.0-51.0); MEAN CORPUSCULAR HEMOGLOBIN 25.5 pg (27.0-34.0); MEAN CORPUSCULAR HGB CONC 32.7 g/dL (33.0-35.0); MEAN CORPUSCULAR VOLUME 77.9 fL (80.0-100.0); MEAN PLATELET VOLUME 7.2 fL (7.4-11.0); MONOCYTES # (AUTO) 0.8 x10^3/uL (0.3-0.8); MONOCYTES % (AUTO) 7.8 % (0.0-13.0); NEUTROPHILS # (AUTO) 8.1 x10^3/uL (2.2-4.8); NEUTROPHILS % (AUTO) 79.2 % (42.0-75.0); PLATELET COUNT 360 X10^3/uL (150.0-450.0); RED BLOOD COUNT 3.49 X10^6/uL (3.5-5.4); RED CELL DISTRIBUTION WIDTH 19.6 % (11.6-16.5); WHITE BLOOD COUNT 10.2 X10^3/uL (3.6-10.0)
[2023-06-28 06:10] LABS: ALANINE AMINOTRANSFERASE 21 Units/L (12-78); ALBUMIN 1.3 g/dL (3.4-5.0); ALKALINE PHOSPHATASE 182 Units/L (46-116); ASPARTATE AMINO TRANSFERASE 79 Units/L (15-37); BLOOD UREA NITROGEN 2 mg/dL (7-18); CALCIUM 7.4 mg/dL (8.5-10.1); CARBON DIOXIDE 23.2 mmol/L (21-32); CHLORIDE 97 mmol/L (98-107); COR CA(FOR HYPOALB) 9.6 mg/dL (8.5-10.1); CREATININE 0.42 mg/dL (0.55-1.02); GLUCOSE 62 mg/dL (65-99); POTASSIUM 4.4 mmol/L (3.5-5.1); SODIUM 127 mmol/L (136-145); TOTAL PROTEIN 5.7 g/dL (6.4-8.2); eGFR NON BLACK RACES > 60 (>60)
[2023-06-28] MEDS: CORTEF PO SCH ×2 (06:17→12:24)
--- NOTE | 2023-06-28 06:22 | RAD ---
EXAM:CHEST, 1 VIEWHISTORY:Atelectasis;COMPARISON:06/27.TECHNIQUE:AP view of the chestFINDINGS:Cardiac silhouette and mediastinal contours are likely normal in size. However, there is silhouetting of the right heart border limiting evaluation. There is worse elevation of the right hemidiaphragm. Blunted right costophrenic sulcus. Can not exclude a right base opacity. No pneumothorax.IMPRESSION:Elevated right hemidiaphragm. This is worse than prior suggesting right base atelectasis. Blunted right costophrenic sulcus can be seen with pleural scarring or small pleural effusion.THIS IS AN ELECTRONICALLY VERIFIED FINAL REPORT06/28/2023 6:19 AM - Electronically signed by Nahum Ferrell MD
[2023-06-28] MEDS ORDERED: NS 1,000 ML IV 1,000 ML with MAGNESIUM SULFATE 50% INJ VIAL 1 G IV SCH ×2 (08:00)
[2023-06-28] MEDS ORDERED: CONSULT PHARMACY - POTASSIUM & MAGNESIUM XX SCH (08:00)
[2023-06-28] MEDS: LOVENOX INJ 40 MG SYR SC SCH (09:38)
[2023-06-28] MEDS: PROTONIX INJ 40 MG VIAL IVP SCH (09:38)
[2023-06-28] MEDS ORDERED: DILAUDID INJ IVP PRN (10:27)
[2023-06-28] MEDS: MYLICON TAB 80 MG CHEW PO PRN (10:50)
[2023-06-28] MEDS: ZOFRAN INJ 4 MG VIAL IVP PRN (12:45)
[2023-06-28 13:24] VITALS: O2SAT 94
[2023-06-28 13:45] VITALS: RESP 20
[2023-06-28 14:26] VITALS: BP 115/65; PULSE 100; TEMP 98.1
== END 2023-06-28 14:10 | disposition home or self-care (01) | DRG 330 ==
LOC: ER 01:35 → ICU 01:35 → MED/SURG 06-25 14:45
PROVIDERS: ADMIT Surgery; ATTEND Surgery
PROC: LIVERBX (2023-06-21 10:15)
PROC: DIAGLAP (2023-06-21 10:15)
DX: E87.1 Hypo-osmolality and hyponatremia; C78.7 Secondary malignant neoplasm of liver and intrahepatic bile duct; D64.89 Other specified anemias; C18.9 Malignant neoplasm of colon, unspecified; K57.32 Diverticulitis of large intestine without perforation or abscess without bleeding; R79.82 Elevated C-reactive protein (CRP); J98.11 Atelectasis; R26.89 Other abnormalities of gait and mobility; K80.12 Calculus of gallbladder with acute and chronic cholecystitis without obstruction